=== PATIENT | male | born 1935 | race Caucasian/White ===

== ENCOUNTER 2016-04-28 15:13 | Inpatient (IN) | payer MEDICARE, OTHER ==
[~2016-04-28] VITALS: Ht 182.9 cm; Wt 128.4 kg
[~2016-04-28 15:13] MED LIST: ACET500T76 PO; ALBU1.25 NEB; AMLO2.5T PO; APIX5TAB PO; ASCO-96 PO; ASPI-650 PO; ATOR20TA PO; CARV12.52 PO; CARV12.543 PO; CLOP75TA PO; DOCU-30 PO; FURO20TA3 PO; GABA300C10 PO; GABA600T2 PO; GLIP5TAB10 PO; INSU100I32 SQ; INSU100V5 SQ-INSULIN; LINA5TAB PO; MULT-516 PO; NIAC500C3 PO; PANT40TA3 PO; POLY17PO5 PO; PRED10TA PO; TAMS0.4C2 PO; VALS160T3 PO
[2016-04-28] MEDS ORDERED: SODIUM CHLORIDE 0.9% 1,000ML IVBOLUS ONE (16:30)
[2016-04-28 16:32] LABS: HEMOGLOBIN 12.2 g/dL (13.7-18.0)
[2016-04-28] MEDS ORDERED: SODIUM CHLORIDE 0.9% 1,000 ML IV ONE (16:36)
[2016-04-28] MEDS ORDERED: ASPI-650 PO (16:41)
[2016-04-28 16:45] LABS: ASPARTATE AMINO TRANSFERASE 14 U/L (15-37); BLOOD UREA NITROGEN 37 mg/dL (7-18)
[2016-04-28] MEDS ORDERED: CEFTRIAXONE PMX 1GM/50ML 50 ML IVPB ONE (17:00)
[2016-04-28] MEDS ORDERED: CEFTRIAXONE PMX 1GM/50ML 50 ML ONE (17:19)
[2016-04-28] MEDS ORDERED: SODIUM CHLORIDE FLUSH 10ML SYR IVF PRN (20:00)
[2016-04-28] MEDS ORDERED: POLYETHYLENE GLYCOL 17 GM PACKET PO PRN (20:30)
[2016-04-28] MEDS ORDERED: BISACODYL 10 MG SUPP PR PRN (20:30)
[2016-04-28] MEDS ORDERED: VANCOMYCIN PER PHARMACY MC PRN (20:30)
[2016-04-28] MEDS ORDERED: OXYcodone IR 5MG TABLET PO PRN (20:30)
[2016-04-28] MEDS ORDERED: PIPERACILLIN/TAZO/PMX 3.375GM 50 ML ONE (20:36)
[2016-04-28] MEDS: PIPERACILLIN/TAZO/PMX 3.375GM 50 ML IV SCH (20:41)
[2016-04-28 21:30] VITALS: BP 164/91
[2016-04-28] MEDS ORDERED: PHARMACOKINETIC MONITORING MC PRN ×2 (22:00)
[2016-04-28] MEDS ORDERED: VANCOMYCIN 2,200 MG in SODIUM CHLORIDE 0.9% 500 ML IV SCH (23:00)
[2016-04-28] MEDS ORDERED: INSULIN ASPART 100 UNITS/ML, PEN SQ-INSULIN SCH (23:30)
[2016-04-28] MEDS: TAMSULOSIN 0.4 MG CAP.ER.24H PO SCH (23:37)
[2016-04-28] MEDS: GABAPENTIN 300 MG CAPSULE PO SCH (23:37)
[2016-04-28] MEDS: SODIUM CHLORIDE 0.9% 1,000 ML IV SCH (23:37)
[2016-04-28] MEDS: ATORVASTATIN 20 MG TABLET PO SCH (23:37)
[2016-04-28] MEDS: SODIUM CHLORIDE FLUSH 10ML SYR IVF SCH (23:38)
[2016-04-29 02:19] VITALS: BP 108/67
[2016-04-29] MEDS: PIPERACILLIN/TAZO/PMX 3.375GM 50 ML IV SCH ×4 (03:02→19:57)
[2016-04-29 05:04] LABS: HEMOGLOBIN 11.2 g/dL (13.7-18.0)
[2016-04-29 05:17] LABS: BLOOD UREA NITROGEN 30 mg/dL (7-18)
[2016-04-29 05:22] LABS: ASPARTATE AMINO TRANSFERASE 14 U/L (15-37)
[2016-04-29] MEDS: INSULIN ASPART 100 UNITS/ML, PEN SQ-INSULIN SCH ×4 (05:50→20:02)
[2016-04-29 06:50] VITALS: BP 153/84
[2016-04-29] MEDS ORDERED: GADOBUTROL 10 MMOL/10 ML PFS ONE (07:43)
[2016-04-29] MEDS ORDERED: INSULIN DEGLUDEC SQ SCH ×2 (09:00→21:00)
[2016-04-29] MEDS: SODIUM CHLORIDE FLUSH 10ML SYR IVF SCH ×2 (09:06→19:57)
[2016-04-29] MEDS: TAMSULOSIN 0.4 MG CAP.ER.24H PO SCH ×2 (09:06→19:57)
[2016-04-29] MEDS: NIACIN 500 MG TABLET.ER PO SCH (09:07)
[2016-04-29] MEDS: FUROSEMIDE 20 MG TABLET PO SCH (09:07)
[2016-04-29] MEDS: GABAPENTIN 300 MG CAPSULE PO SCH ×2 (09:07→19:57)
[2016-04-29] MEDS: ASPIRIN 325 MG TABLET EC PO SCH (09:07)
[2016-04-29] MEDS: MULTIVITAMIN 1 TABLET PO SCH (09:08)
[2016-04-29] MEDS: ASCORBIC ACID 500 MG TABLET PO SCH (09:09)
[2016-04-29] MEDS: SENNA/DOCUSATE TABLET PO SCH (09:09)
[2016-04-29] MEDS ORDERED: HEPARIN 5,000 UNITS/ML, 1ML IV ONE (10:30)
[2016-04-29] MEDS ORDERED: HEPARIN 5,000 UNITS/ML, 1ML IV PRN (10:30)
[2016-04-29] MEDS ORDERED: HEPARIN 25,000 UNITS/500ML PMX 500 ML IV PRN (10:30)
[2016-04-29 13:43] VITALS: BP 145/79
[2016-04-29] MEDS ORDERED: VANCOMYCIN 1,800 MG in SODIUM CHLORIDE 0.9% 250 ML IV SCH (17:00)
[2016-04-29 18:30] VITALS: BP 137/74
[2016-04-29] MEDS: ATORVASTATIN 20 MG TABLET PO SCH (19:57)
[2016-04-29] MEDS: SODIUM CHLORIDE 0.9% 1,000 ML IV SCH (19:57)
[2016-04-30 01:41] VITALS: BP 148/78
[2016-04-30] MEDS: PIPERACILLIN/TAZO/PMX 3.375GM 50 ML IV SCH ×4 (02:40→23:26)
[2016-04-30 05:01] LABS: HEMOGLOBIN 11.3 g/dL (13.7-18.0)
[2016-04-30 05:14] LABS: BLOOD UREA NITROGEN 26 mg/dL (7-18)
[2016-04-30] MEDS: INSULIN ASPART 100 UNITS/ML, PEN SQ-INSULIN SCH ×4 (07:00→23:26)
[2016-04-30 07:11] VITALS: BP 121/63
[2016-04-30] MEDS: ASCORBIC ACID 500 MG TABLET PO SCH (09:00)
[2016-04-30] MEDS: ASPIRIN 325 MG TABLET EC PO SCH (09:00)
[2016-04-30] MEDS: SENNA/DOCUSATE TABLET PO SCH (09:00)
[2016-04-30] MEDS: NIACIN 500 MG TABLET.ER PO SCH (09:00)
[2016-04-30] MEDS: FUROSEMIDE 20 MG TABLET PO SCH (09:00)
[2016-04-30] MEDS: GABAPENTIN 300 MG CAPSULE PO SCH ×2 (09:00→23:25)
[2016-04-30] MEDS: TAMSULOSIN 0.4 MG CAP.ER.24H PO SCH ×2 (09:00→23:25)
[2016-04-30] MEDS: MULTIVITAMIN 1 TABLET PO SCH (09:00)
[2016-04-30] MEDS: SODIUM CHLORIDE FLUSH 10ML SYR IVF SCH ×2 (09:55→23:25)
[2016-04-30] MEDS: SODIUM CHLORIDE 0.9% 1,000 ML IV SCH (10:20)
[2016-04-30] MEDS ORDERED: FENTANYL PF 250 MCG/5ML ONE (13:14)
[2016-04-30] MEDS ORDERED: MIDAZOLAM 1 MG/ML, 2ML ONE (13:14)
[2016-04-30] MEDS ORDERED: LIDOCAINE/PF 1%, 30ML ONE (13:24)
[2016-04-30] MEDS ORDERED: ROCURONIUM 10 MG/ML ONE (13:27)
[2016-04-30] MEDS ORDERED: EPHEDRINE 50 MG/ML, 1ML ONE (13:27)
[2016-04-30] MEDS ORDERED: PROPOFOL 10 MG/ML, 20ML ONE (13:27)
[2016-04-30] MEDS ORDERED: PHENYLEPHRINE 10 MG/ML ONE (13:27)
[2016-04-30] MEDS ORDERED: DEXAMETHASONE 4 MG/ML, 1ML ONE (13:27)
[2016-04-30] MEDS ORDERED: NEOSTIGMINE 1 MG/ML, 10ML ONE (13:27)
[2016-04-30] MEDS ORDERED: ONDANSETRON 2MG/ML, 2ML ONE (13:27)
[2016-04-30] MEDS ORDERED: CEFAZOLIN 1,000 MG ONE (13:27)
[2016-04-30] MEDS ORDERED: GLYCOPYRROLATE 0.2MG/1ML ONE (13:27)
[2016-04-30] MEDS ORDERED: ACETAMINOPHEN 325 MG TABLET PO PRN (14:00)
[2016-04-30] MEDS ORDERED: hydrALAzine 20 MG/ML, 1ML IV PRN (14:00)
[2016-04-30] MEDS ORDERED: HYDROmorphone 1 MG/ML, 1ML IV PRN (14:00)
[2016-04-30] MEDS ORDERED: MEPERIDINE/PF 25MG/0.5ML IVPush PRN (14:00)
[2016-04-30] MEDS ORDERED: PROMETHAZINE 25 MG/ML, 1ML IV PRN (14:00)
[2016-04-30] MEDS ORDERED: OXYcodone 5 MG/5 ML ORAL.SOL UDC PO PRN (14:00)
[2016-04-30] MEDS ORDERED: ONDANSETRON 2MG/ML, 2ML IVPush PRN (14:00)
[2016-04-30] MEDS ORDERED: FENTANYL PF 100 MCG/2ML IV PRN (14:00)
[2016-04-30] MEDS ORDERED: MIDAZOLAM 1 MG/ML, 2ML IV PRN (14:00)
[2016-04-30] MEDS ORDERED: LABETALOL 5MG/ML, 20ML IV PRN (14:00)
[2016-04-30] MEDS ORDERED: ACETAMINOPHEN 650 MG/20.3 ML UDC ONE (14:38)
[2016-04-30] MEDS ORDERED: OXYcodone 5 MG/5 ML ORAL.SOL UDC ONE (14:38)
[2016-04-30 15:15] VITALS: BP 101/49
[2016-04-30] MEDS ORDERED: VANCOMYCIN 1,800 MG in SODIUM CHLORIDE 0.9% 250 ML IV SCH (17:00)
[2016-04-30 19:59] VITALS: BP 115/52
[2016-04-30] MEDS: ATORVASTATIN 20 MG TABLET PO SCH (23:25)
[2016-04-30] MEDS: INSULIN DEGLUDEC SQ SCH (23:28)
[2016-05-01 01:12] VITALS: BP 138/64
[2016-05-01 05:49] LABS: HEMOGLOBIN 11.1 g/dL (13.7-18.0)
[2016-05-01 05:56] LABS: BLOOD UREA NITROGEN 25 mg/dL (7-18)
[2016-05-01] MEDS: PIPERACILLIN/TAZO/PMX 3.375GM 50 ML IV SCH (06:42)
[2016-05-01] MEDS ORDERED: SODIUM CHLORIDE 0.9%, 500ML IVBOLUS ONE (07:00)
[2016-05-01 07:40] VITALS: BP 139/73
[2016-05-01] MEDS: SODIUM CHLORIDE 0.9% 1,000 ML IV SCH ×2 (07:51→14:03)
[2016-05-01] MEDS: INSULIN ASPART 100 UNITS/ML, PEN SQ-INSULIN SCH ×4 (08:03→20:47)
[2016-05-01] MEDS: ONDANSETRON 2MG/ML, 2ML IVP PRN ×3 (08:10→19:06)
[2016-05-01] MEDS: SENNA/DOCUSATE TABLET PO SCH (09:00)
[2016-05-01] MEDS: MULTIVITAMIN 1 TABLET PO SCH (09:00)
[2016-05-01] MEDS: ASPIRIN 325 MG TABLET EC PO SCH (09:00)
[2016-05-01] MEDS: TAMSULOSIN 0.4 MG CAP.ER.24H PO SCH ×2 (09:00→20:48)
[2016-05-01] MEDS: ASCORBIC ACID 500 MG TABLET PO SCH (09:00)
[2016-05-01] MEDS: NIACIN 500 MG TABLET.ER PO SCH (09:00)
[2016-05-01] MEDS: AMPICILLIN/SULBACTAM 3 GM in SODIUM CHLORIDE 0.9% 100 ML IV SCH ×3 (11:56→20:47)
[2016-05-01] MEDS: SODIUM CHLORIDE FLUSH 10ML SYR IVF SCH ×2 (11:56→20:49)
[2016-05-01] MEDS: FUROSEMIDE 20 MG TABLET PO SCH (12:02)
[2016-05-01] MEDS: GABAPENTIN 300 MG CAPSULE PO SCH ×2 (12:02→20:48)
[2016-05-01 13:52] VITALS: BP 113/79
[2016-05-01] MEDS ORDERED: PROMETHAZINE 25 MG/ML, 1ML IM PRN (19:30)
[2016-05-01 19:44] VITALS: BP 110/68
[2016-05-01] MEDS: ATORVASTATIN 20 MG TABLET PO SCH (20:48)
[2016-05-01] MEDS: APIXABAN 5 MG TABLET PO SCH (20:48)
[2016-05-01] MEDS: INSULIN DEGLUDEC SQ SCH (20:50)
[2016-05-01] MEDS ORDERED: APIXABAN 2.5 MG TABLET PO SCH (21:00)
[2016-05-01] MEDS: ACETAMINOPHEN 325 MG TABLET PO PRN (21:41)
[2016-05-02 01:48] VITALS: BP 125/69
[2016-05-02] MEDS: AMPICILLIN/SULBACTAM 3 GM in SODIUM CHLORIDE 0.9% 100 ML IV SCH ×4 (03:56→20:43)
[2016-05-02 05:51] LABS: HEMOGLOBIN 11.2 g/dL (13.7-18.0)
[2016-05-02 06:06] LABS: BLOOD UREA NITROGEN 28 mg/dL (7-18)
[2016-05-02] MEDS: INSULIN ASPART 100 UNITS/ML, PEN SQ-INSULIN SCH ×4 (07:00→20:44)
[2016-05-02 07:33] VITALS: BP 113/66
[2016-05-02] MEDS: APIXABAN 5 MG TABLET PO SCH ×4 (08:05→20:46)
[2016-05-02] MEDS: TAMSULOSIN 0.4 MG CAP.ER.24H PO SCH ×2 (08:05→20:46)
[2016-05-02] MEDS: ASCORBIC ACID 500 MG TABLET PO SCH (08:07)
[2016-05-02] MEDS: GABAPENTIN 300 MG CAPSULE PO SCH ×2 (08:07→20:46)
[2016-05-02] MEDS: ASPIRIN 325 MG TABLET EC PO SCH (08:07)
[2016-05-02] MEDS: MULTIVITAMIN 1 TABLET PO SCH (08:07)
[2016-05-02] MEDS: FUROSEMIDE 20 MG TABLET PO SCH (08:08)
[2016-05-02] MEDS: NIACIN 500 MG TABLET.ER PO SCH (08:45)
[2016-05-02] MEDS: SODIUM CHLORIDE FLUSH 10ML SYR IVF SCH ×2 (08:46→20:46)
[2016-05-02] MEDS ORDERED: VANCOMYCIN 1,800 MG in SODIUM CHLORIDE 0.9% 250 ML IV SCH (11:30)
[2016-05-02] MEDS: SODIUM CHLORIDE 0.9% 1,000 ML IV SCH ×2 (12:19→20:42)
[2016-05-02] MEDS: SENNA/DOCUSATE TABLET PO SCH (12:19)
[2016-05-02 14:00] VITALS: BP 120/74
[2016-05-02 18:47] VITALS: BP 125/69
[2016-05-02] MEDS: INSULIN DEGLUDEC SQ SCH (20:44)
[2016-05-02] MEDS: ATORVASTATIN 20 MG TABLET PO SCH (20:46)
[2016-05-03 01:35] VITALS: BP 115/75
[2016-05-03] MEDS: AMPICILLIN/SULBACTAM 3 GM in SODIUM CHLORIDE 0.9% 100 ML IV SCH ×2 (03:34→08:52)
[2016-05-03 05:11] LABS: HEMOGLOBIN 11.1 g/dL (13.7-18.0)
[2016-05-03 05:23] LABS: BLOOD UREA NITROGEN 30 mg/dL (7-18)
[2016-05-03] MEDS: INSULIN ASPART 100 UNITS/ML, PEN SQ-INSULIN SCH (07:00)
[2016-05-03 08:27] VITALS: BP 129/74
[2016-05-03] MEDS ORDERED: CEPH-368 PO (08:52)
[2016-05-03] MEDS ORDERED: DOXY100C15 PO (08:52)
[2016-05-03] MEDS ORDERED: TRAM50TA2 PO (08:52)
[2016-05-03] MEDS: FUROSEMIDE 20 MG TABLET PO SCH (08:54)
[2016-05-03] MEDS: TAMSULOSIN 0.4 MG CAP.ER.24H PO SCH (08:54)
[2016-05-03] MEDS: MULTIVITAMIN 1 TABLET PO SCH (08:54)
[2016-05-03] MEDS: NIACIN 500 MG TABLET.ER PO SCH (08:54)
[2016-05-03] MEDS: SENNA/DOCUSATE TABLET PO SCH (08:54)
[2016-05-03] MEDS: ASPIRIN 325 MG TABLET EC PO SCH (08:55)
[2016-05-03] MEDS: ASCORBIC ACID 500 MG TABLET PO SCH (08:55)
[2016-05-03] MEDS: GABAPENTIN 300 MG CAPSULE PO SCH (08:55)
[2016-05-03] MEDS: APIXABAN 5 MG TABLET PO SCH (08:55)
[2016-05-03] MEDS: SODIUM CHLORIDE FLUSH 10ML SYR IVF SCH (08:57)
[2016-05-03] MEDS: ACETAMINOPHEN 325 MG TABLET PO PRN (10:27)
== END 2016-05-03 14:36 | disposition home or self-care (01) | DRG 617 ==
LOC: ED 16:48 → 3NE 19:42
PROVIDERS: ADMIT Internal Medicine; ATTEND Internal Medicine
PROC: 0Y6T0Z0 Detachment at Right 3rd Toe, Complete, Open Approach (ICD-10-PCS; principal; 2016-04-30 13:00)
DX: E11.621 Type 2 diabetes mellitus with foot ulcer (principal); M86.171 Other acute osteomyelitis, right ankle and foot; E44.1 Mild protein-calorie malnutrition; D68.69 Other thrombophilia; I69.351 Hemiplegia and hemiparesis following cerebral infarction affecting right dominant side; L03.115 Cellulitis of right lower limb; E11.69 Type 2 diabetes mellitus with other specified complication; E11.319 Type 2 diabetes mellitus with unspecified diabetic retinopathy without macular edema; E11.40 Type 2 diabetes mellitus with diabetic neuropathy, unspecified; E78.5 Hyperlipidemia, unspecified; D64.9 Anemia, unspecified; I25.10 Atherosclerotic heart disease of native coronary artery without angina pectoris; M54.9 Dorsalgia, unspecified; G89.29 Other chronic pain; I48.91 Unspecified atrial fibrillation; J44.9 Chronic obstructive pulmonary disease, unspecified; E66.01 Morbid (severe) obesity due to excess calories; Z87.442 Personal history of urinary calculi; Z68.38 Body mass index [BMI] 38.0-38.9, adult; Z90.49 Acquired absence of other specified parts of digestive tract; Z79.01 Long term (current) use of anticoagulants; Z79.4 Long term (current) use of insulin; Z87.891 Personal history of nicotine dependence; Z82.49 Family history of ischemic heart disease and other diseases of the circulatory system; L97.519 Non-pressure chronic ulcer of other part of right foot with unspecified severity
CPT/HCPCS: 36415; 74000; 80048; 80053; 80202; 82962; 83036; 83605; 84145; 85025; 85520; 85610; 85651; 85730; 86141; 87040; 87070; 87075; 87176; 87205; 88305; 88311; 93005; 96361; 96365; 96367; A9585; J0295; J0690; J0696; J1100; J1644; J1815; J2250; J2405; J2543; J2704; J2710; J3010; J3370; J3490; J2370; J7030; J7040; J7050

== ENCOUNTER → 2016-05-12 | Outpatient (CLI) | payer MEDICARE, OTHER ==
[~2016-05-12] MED LIST changes: +CEPH-368 PO; +DOXY100C15 PO; +TRAM50TA2 PO
== END | disposition home or self-care (01) ==
LOC: WOUND 09:59
PROVIDERS: ATTEND Physician Assistant
DX: T81.31XD Disruption of external operation (surgical) wound, not elsewhere classified, subsequent encounter (principal); E11.621 Type 2 diabetes mellitus with foot ulcer; L97.511 Non-pressure chronic ulcer of other part of right foot limited to breakdown of skin; E11.40 Type 2 diabetes mellitus with diabetic neuropathy, unspecified; E66.9 Obesity, unspecified; E78.5 Hyperlipidemia, unspecified; I48.91 Unspecified atrial fibrillation; I25.10 Atherosclerotic heart disease of native coronary artery without angina pectoris; Z79.01 Long term (current) use of anticoagulants; Z86.73 Personal history of transient ischemic attack (TIA), and cerebral infarction without residual deficits; Z87.891 Personal history of nicotine dependence; Z72.89 Other problems related to lifestyle; Y83.8 Other surgical procedures as the cause of abnormal reaction of the patient, or of later complication, without mention of misadventure at the time of the procedure
CPT/HCPCS: 97597

== ENCOUNTER → 2016-05-19 | Outpatient (CLI) | payer MEDICARE, OTHER | END | disposition home or self-care (01) | LOC: WOUND 09:48 | PROVIDERS: ATTEND Internal Medicine | DX: T87.81 Dehiscence of amputation stump (principal); E11.621 Type 2 diabetes mellitus with foot ulcer; L97.511 Non-pressure chronic ulcer of other part of right foot limited to breakdown of skin; E11.69 Type 2 diabetes mellitus with other specified complication; M86.171 Other acute osteomyelitis, right ankle and foot; E11.319 Type 2 diabetes mellitus with unspecified diabetic retinopathy without macular edema; E11.40 Type 2 diabetes mellitus with diabetic neuropathy, unspecified; E78.5 Hyperlipidemia, unspecified; I48.91 Unspecified atrial fibrillation; I25.10 Atherosclerotic heart disease of native coronary artery without angina pectoris; J44.9 Chronic obstructive pulmonary disease, unspecified; Z79.01 Long term (current) use of anticoagulants; Z86.73 Personal history of transient ischemic attack (TIA), and cerebral infarction without residual deficits; Z87.891 Personal history of nicotine dependence; Z72.89 Other problems related to lifestyle; E66.01 Morbid (severe) obesity due to excess calories; Z68.38 Body mass index [BMI] 38.0-38.9, adult; Z79.4 Long term (current) use of insulin; Y83.5 Amputation of limb(s) as the cause of abnormal reaction of the patient, or of later complication, without mention of misadventure at the time of the procedure | CPT/HCPCS: 97597 ==

== ENCOUNTER → 2016-05-26 | Outpatient (CLI) | payer MEDICARE, OTHER | END | disposition home or self-care (01) | LOC: WOUND 10:59 | PROVIDERS: ATTEND Physician Assistant | DX: T81.31XD Disruption of external operation (surgical) wound, not elsewhere classified, subsequent encounter (principal); E11.621 Type 2 diabetes mellitus with foot ulcer; L97.511 Non-pressure chronic ulcer of other part of right foot limited to breakdown of skin; Z79.01 Long term (current) use of anticoagulants; Z86.73 Personal history of transient ischemic attack (TIA), and cerebral infarction without residual deficits; J44.9 Chronic obstructive pulmonary disease, unspecified; E11.40 Type 2 diabetes mellitus with diabetic neuropathy, unspecified; E11.69 Type 2 diabetes mellitus with other specified complication; M86.171 Other acute osteomyelitis, right ankle and foot; E78.5 Hyperlipidemia, unspecified; I48.91 Unspecified atrial fibrillation; I25.10 Atherosclerotic heart disease of native coronary artery without angina pectoris; E44.1 Mild protein-calorie malnutrition; Z79.4 Long term (current) use of insulin; E66.01 Morbid (severe) obesity due to excess calories; Z87.891 Personal history of nicotine dependence; Z72.89 Other problems related to lifestyle; Y83.8 Other surgical procedures as the cause of abnormal reaction of the patient, or of later complication, without mention of misadventure at the time of the procedure | CPT/HCPCS: 97597 ==

== ENCOUNTER → 2016-06-02 | Outpatient (CLI) | payer MEDICARE, OTHER | END | disposition home or self-care (01) | LOC: WOUND 09:30 | PROVIDERS: ATTEND Physician Assistant | DX: T81.31XD Disruption of external operation (surgical) wound, not elsewhere classified, subsequent encounter (principal); E11.69 Type 2 diabetes mellitus with other specified complication; M86.171 Other acute osteomyelitis, right ankle and foot; E11.319 Type 2 diabetes mellitus with unspecified diabetic retinopathy without macular edema; Z79.01 Long term (current) use of anticoagulants; Z68.38 Body mass index [BMI] 38.0-38.9, adult; Z86.73 Personal history of transient ischemic attack (TIA), and cerebral infarction without residual deficits; J44.9 Chronic obstructive pulmonary disease, unspecified; E11.40 Type 2 diabetes mellitus with diabetic neuropathy, unspecified; E66.9 Obesity, unspecified; E78.5 Hyperlipidemia, unspecified; E44.1 Mild protein-calorie malnutrition; I48.91 Unspecified atrial fibrillation; I25.10 Atherosclerotic heart disease of native coronary artery without angina pectoris; Z87.891 Personal history of nicotine dependence; Z72.89 Other problems related to lifestyle; Z79.4 Long term (current) use of insulin; Y83.8 Other surgical procedures as the cause of abnormal reaction of the patient, or of later complication, without mention of misadventure at the time of the procedure | CPT/HCPCS: 97597 ==

== ENCOUNTER → 2016-06-09 | Outpatient (CLI) | payer MEDICARE, OTHER | END | disposition home or self-care (01) | LOC: WOUND 10:23 | PROVIDERS: ATTEND Physician Assistant | DX: T81.31XD Disruption of external operation (surgical) wound, not elsewhere classified, subsequent encounter (principal); E11.621 Type 2 diabetes mellitus with foot ulcer; L97.511 Non-pressure chronic ulcer of other part of right foot limited to breakdown of skin; J44.9 Chronic obstructive pulmonary disease, unspecified; E11.40 Type 2 diabetes mellitus with diabetic neuropathy, unspecified; E66.9 Obesity, unspecified; Z68.37 Body mass index [BMI] 37.0-37.9, adult; Z87.891 Personal history of nicotine dependence; Z86.73 Personal history of transient ischemic attack (TIA), and cerebral infarction without residual deficits; Z72.89 Other problems related to lifestyle; Z79.01 Long term (current) use of anticoagulants; Z89.421 Acquired absence of other right toe(s); Y83.8 Other surgical procedures as the cause of abnormal reaction of the patient, or of later complication, without mention of misadventure at the time of the procedure | CPT/HCPCS: 97597 ==

== ENCOUNTER → 2016-06-16 | Outpatient (CLI) | payer MEDICARE, OTHER | END | disposition home or self-care (01) | LOC: WOUND 10:30 | PROVIDERS: ATTEND Physician Assistant | DX: T81.31XD Disruption of external operation (surgical) wound, not elsewhere classified, subsequent encounter (principal); E11.621 Type 2 diabetes mellitus with foot ulcer; L97.511 Non-pressure chronic ulcer of other part of right foot limited to breakdown of skin; Z79.01 Long term (current) use of anticoagulants; Z86.73 Personal history of transient ischemic attack (TIA), and cerebral infarction without residual deficits; J44.9 Chronic obstructive pulmonary disease, unspecified; E11.40 Type 2 diabetes mellitus with diabetic neuropathy, unspecified; E66.9 Obesity, unspecified; Z68.38 Body mass index [BMI] 38.0-38.9, adult; E78.5 Hyperlipidemia, unspecified; E11.69 Type 2 diabetes mellitus with other specified complication; M86.171 Other acute osteomyelitis, right ankle and foot; I48.91 Unspecified atrial fibrillation; I25.10 Atherosclerotic heart disease of native coronary artery without angina pectoris; Z89.421 Acquired absence of other right toe(s); Z79.4 Long term (current) use of insulin; Z87.891 Personal history of nicotine dependence; Z72.89 Other problems related to lifestyle; Y83.8 Other surgical procedures as the cause of abnormal reaction of the patient, or of later complication, without mention of misadventure at the time of the procedure | CPT/HCPCS: 97597 ==

== ENCOUNTER → 2016-06-23 | Outpatient (CLI) | payer MEDICARE, OTHER | END | disposition home or self-care (01) | LOC: WOUND 10:30 | PROVIDERS: ATTEND Physician Assistant | DX: T81.31XD Disruption of external operation (surgical) wound, not elsewhere classified, subsequent encounter (principal); E11.621 Type 2 diabetes mellitus with foot ulcer; L97.511 Non-pressure chronic ulcer of other part of right foot limited to breakdown of skin; J44.9 Chronic obstructive pulmonary disease, unspecified; E11.40 Type 2 diabetes mellitus with diabetic neuropathy, unspecified; E78.5 Hyperlipidemia, unspecified; I48.91 Unspecified atrial fibrillation; I25.10 Atherosclerotic heart disease of native coronary artery without angina pectoris; E11.69 Type 2 diabetes mellitus with other specified complication; M86.171 Other acute osteomyelitis, right ankle and foot; E11.319 Type 2 diabetes mellitus with unspecified diabetic retinopathy without macular edema; E44.1 Mild protein-calorie malnutrition; E66.01 Morbid (severe) obesity due to excess calories; Z68.38 Body mass index [BMI] 38.0-38.9, adult; Z79.01 Long term (current) use of anticoagulants; Z89.421 Acquired absence of other right toe(s); Z86.73 Personal history of transient ischemic attack (TIA), and cerebral infarction without residual deficits; Z87.891 Personal history of nicotine dependence; Z72.89 Other problems related to lifestyle; Y83.8 Other surgical procedures as the cause of abnormal reaction of the patient, or of later complication, without mention of misadventure at the time of the procedure | CPT/HCPCS: 97597 ==

== ENCOUNTER → 2016-06-30 | Outpatient (CLI) | payer MEDICARE, OTHER | END | disposition home or self-care (01) | LOC: WOUND 10:30 | PROVIDERS: ATTEND Physician Assistant | DX: T87.89 Other complications of amputation stump (principal); E11.621 Type 2 diabetes mellitus with foot ulcer; L97.511 Non-pressure chronic ulcer of other part of right foot limited to breakdown of skin; J44.9 Chronic obstructive pulmonary disease, unspecified; E11.40 Type 2 diabetes mellitus with diabetic neuropathy, unspecified; E78.5 Hyperlipidemia, unspecified; E66.01 Morbid (severe) obesity due to excess calories; I48.91 Unspecified atrial fibrillation; E11.319 Type 2 diabetes mellitus with unspecified diabetic retinopathy without macular edema; M86.8X7 Other osteomyelitis, ankle and foot; E11.69 Type 2 diabetes mellitus with other specified complication; I25.10 Atherosclerotic heart disease of native coronary artery without angina pectoris; Z68.37 Body mass index [BMI] 37.0-37.9, adult; Z86.73 Personal history of transient ischemic attack (TIA), and cerebral infarction without residual deficits; Z72.89 Other problems related to lifestyle; Z87.891 Personal history of nicotine dependence; Z79.01 Long term (current) use of anticoagulants; Z79.4 Long term (current) use of insulin; Y83.5 Amputation of limb(s) as the cause of abnormal reaction of the patient, or of later complication, without mention of misadventure at the time of the procedure | CPT/HCPCS: 11042 ==

== ENCOUNTER → 2016-07-07 | Outpatient (CLI) | payer MEDICARE, OTHER | END | disposition home or self-care (01) | LOC: WOUND 10:19 | PROVIDERS: ATTEND Physician Assistant | DX: T81.31XD Disruption of external operation (surgical) wound, not elsewhere classified, subsequent encounter (principal); E11.621 Type 2 diabetes mellitus with foot ulcer; L97.511 Non-pressure chronic ulcer of other part of right foot limited to breakdown of skin; Z86.73 Personal history of transient ischemic attack (TIA), and cerebral infarction without residual deficits; J44.9 Chronic obstructive pulmonary disease, unspecified; E11.40 Type 2 diabetes mellitus with diabetic neuropathy, unspecified; Z79.4 Long term (current) use of insulin; E78.5 Hyperlipidemia, unspecified; I48.91 Unspecified atrial fibrillation; I25.10 Atherosclerotic heart disease of native coronary artery without angina pectoris; E66.01 Morbid (severe) obesity due to excess calories; E11.69 Type 2 diabetes mellitus with other specified complication; M86.171 Other acute osteomyelitis, right ankle and foot; Z68.37 Body mass index [BMI] 37.0-37.9, adult; Z87.891 Personal history of nicotine dependence; Z72.89 Other problems related to lifestyle; Z89.421 Acquired absence of other right toe(s); Y83.8 Other surgical procedures as the cause of abnormal reaction of the patient, or of later complication, without mention of misadventure at the time of the procedure | CPT/HCPCS: 97597 ==

== ENCOUNTER → 2016-07-15 | Outpatient (CLI) | payer MEDICARE, OTHER | END | disposition home or self-care (01) | LOC: WOUND 10:32 | PROVIDERS: ATTEND Internal Medicine | DX: T87.81 Dehiscence of amputation stump (principal); E11.621 Type 2 diabetes mellitus with foot ulcer; L97.511 Non-pressure chronic ulcer of other part of right foot limited to breakdown of skin; E11.36 Type 2 diabetes mellitus with diabetic cataract; J44.9 Chronic obstructive pulmonary disease, unspecified; E11.40 Type 2 diabetes mellitus with diabetic neuropathy, unspecified; E66.9 Obesity, unspecified; E78.5 Hyperlipidemia, unspecified; I48.91 Unspecified atrial fibrillation; I25.10 Atherosclerotic heart disease of native coronary artery without angina pectoris; Z87.891 Personal history of nicotine dependence; Z72.89 Other problems related to lifestyle; Z86.73 Personal history of transient ischemic attack (TIA), and cerebral infarction without residual deficits; Y83.5 Amputation of limb(s) as the cause of abnormal reaction of the patient, or of later complication, without mention of misadventure at the time of the procedure | CPT/HCPCS: 97597 ==

== ENCOUNTER → 2016-07-17 | Outpatient (CLI) | payer MEDICARE, OTHER ==
[2016-07-17 16:03] LABS: ASPARTATE AMINO TRANSFERASE 23 U/L (15-37); BLOOD UREA NITROGEN 37 mg/dL (7-18)
== END | disposition home or self-care (01) ==
LOC: CFH 14:45
PROVIDERS: ATTEND Nurse Practitioner Primary Care
DX: I11.0 Hypertensive heart disease with heart failure (principal); I50.9 Heart failure, unspecified; I51.7 Cardiomegaly; J90 Pleural effusion, not elsewhere classified; E11.65 Type 2 diabetes mellitus with hyperglycemia; R53.83 Other fatigue; G89.29 Other chronic pain; N28.9 Disorder of kidney and ureter, unspecified; E78.2 Mixed hyperlipidemia; Z95.2 Presence of prosthetic heart valve; Z86.79 Personal history of other diseases of the circulatory system
CPT/HCPCS: 36415; 71020; 80053; 83880; 85025

== ENCOUNTER → 2016-07-21 | Outpatient (CLI) | payer MEDICARE, OTHER | END | disposition home or self-care (01) | LOC: WOUND 10:30 | PROVIDERS: ATTEND Physician Assistant | DX: T81.31XD Disruption of external operation (surgical) wound, not elsewhere classified, subsequent encounter (principal); E11.621 Type 2 diabetes mellitus with foot ulcer; L97.511 Non-pressure chronic ulcer of other part of right foot limited to breakdown of skin; Z79.01 Long term (current) use of anticoagulants; Z86.73 Personal history of transient ischemic attack (TIA), and cerebral infarction without residual deficits; J44.9 Chronic obstructive pulmonary disease, unspecified; E11.40 Type 2 diabetes mellitus with diabetic neuropathy, unspecified; E66.9 Obesity, unspecified; Z68.37 Body mass index [BMI] 37.0-37.9, adult; I25.10 Atherosclerotic heart disease of native coronary artery without angina pectoris; E78.5 Hyperlipidemia, unspecified; Z87.891 Personal history of nicotine dependence; Z72.89 Other problems related to lifestyle; Y83.8 Other surgical procedures as the cause of abnormal reaction of the patient, or of later complication, without mention of misadventure at the time of the procedure | CPT/HCPCS: 11042 ==

== ENCOUNTER → 2016-07-28 | Outpatient (CLI) | payer MEDICARE, OTHER | END | disposition home or self-care (01) | LOC: WOUND 11:04 | PROVIDERS: ATTEND Physician Assistant | DX: T81.31XD Disruption of external operation (surgical) wound, not elsewhere classified, subsequent encounter (principal); J44.9 Chronic obstructive pulmonary disease, unspecified; E66.01 Morbid (severe) obesity due to excess calories; Z68.37 Body mass index [BMI] 37.0-37.9, adult; E11.40 Type 2 diabetes mellitus with diabetic neuropathy, unspecified; E11.65 Type 2 diabetes mellitus with hyperglycemia; E11.36 Type 2 diabetes mellitus with diabetic cataract; E11.319 Type 2 diabetes mellitus with unspecified diabetic retinopathy without macular edema; I48.91 Unspecified atrial fibrillation; E78.2 Mixed hyperlipidemia; E11.69 Type 2 diabetes mellitus with other specified complication; M86.171 Other acute osteomyelitis, right ankle and foot; Z86.73 Personal history of transient ischemic attack (TIA), and cerebral infarction without residual deficits; Z87.891 Personal history of nicotine dependence; Z72.89 Other problems related to lifestyle; Z79.01 Long term (current) use of anticoagulants; Z79.4 Long term (current) use of insulin; Z89.421 Acquired absence of other right toe(s); Y83.8 Other surgical procedures as the cause of abnormal reaction of the patient, or of later complication, without mention of misadventure at the time of the procedure | CPT/HCPCS: 11042 ==

== ENCOUNTER → 2016-08-05 | Outpatient (CLI) | payer MEDICARE, OTHER ==
[~2016-08-05] MED LIST changes: +ACET500T71 PO; -ACET500T76 PO
== END | disposition home or self-care (01) ==
LOC: WOUND 10:30
PROVIDERS: ATTEND Internal Medicine
DX: T81.31XD Disruption of external operation (surgical) wound, not elsewhere classified, subsequent encounter (principal); E11.621 Type 2 diabetes mellitus with foot ulcer; L97.511 Non-pressure chronic ulcer of other part of right foot limited to breakdown of skin; Z86.73 Personal history of transient ischemic attack (TIA), and cerebral infarction without residual deficits; J44.9 Chronic obstructive pulmonary disease, unspecified; E11.40 Type 2 diabetes mellitus with diabetic neuropathy, unspecified; E66.9 Obesity, unspecified; I48.91 Unspecified atrial fibrillation; I25.10 Atherosclerotic heart disease of native coronary artery without angina pectoris; E78.2 Mixed hyperlipidemia; E11.69 Type 2 diabetes mellitus with other specified complication; M86.171 Other acute osteomyelitis, right ankle and foot; E11.319 Type 2 diabetes mellitus with unspecified diabetic retinopathy without macular edema; E44.1 Mild protein-calorie malnutrition; Z68.37 Body mass index [BMI] 37.0-37.9, adult; Z89.421 Acquired absence of other right toe(s); Z87.891 Personal history of nicotine dependence; Z72.89 Other problems related to lifestyle; Y83.8 Other surgical procedures as the cause of abnormal reaction of the patient, or of later complication, without mention of misadventure at the time of the procedure
CPT/HCPCS: 97597

== ENCOUNTER 2016-08-09 09:35 | Inpatient (IN) | payer MEDICARE, OTHER ==
[~2016-08-09] VITALS: Ht 182.9 cm; Wt 121.6 kg
[2016-08-09] MEDS ORDERED: FURO20TA3 PO (10:05)
[2016-08-09] MEDS ORDERED: POTA20TA89 PO (10:05)
[2016-08-09] MEDS ORDERED: INSU100I32 SQ (10:05)
[2016-08-09] MEDS ORDERED: SODIUM CHLORIDE 0.9% 1,000ML IVBOLUS ONE (11:00)
[2016-08-09] MEDS ORDERED: CEFTRIAXONE PMX 1GM/50ML 50 ML IVPB ONE (11:00)
[2016-08-09] MEDS ORDERED: SODIUM CHLORIDE FLUSH 10ML SYR IVF ONE (11:00)
[2016-08-09 11:51] LABS: ASPARTATE AMINO TRANSFERASE 26 U/L (15-37); BLOOD UREA NITROGEN 39 mg/dL (7-18)
[2016-08-09] MEDS ORDERED: CEFTRIAXONE PMX 1GM/50ML 50 ML ONE (11:52)
[2016-08-09 12:00] LABS: IS PT STATUS REG ER OR PRE ER? YES
[2016-08-09] MEDS ORDERED: ASPIRIN 325 MG TABLET PO ONE (12:08)
[2016-08-09] MEDS ORDERED: FUROSEMIDE 40 MG/4 ML ONE (12:53)
[2016-08-09] MEDS ORDERED: ASPIRIN 325 MG TABLET ONE (12:53)
[2016-08-09] MEDS ORDERED: DEXTROSE 4 GM TAB.CHEW PO PRN (13:00)
[2016-08-09] MEDS ORDERED: GLUCAGON 1 MG IM PRN (13:00)
[2016-08-09] MEDS ORDERED: FUROSEMIDE 40 MG/4 ML IV ONE (13:00)
[2016-08-09] MEDS ORDERED: DEXTROSE 50%, 50ML SYRINGE IVPush PRN (13:00)
[2016-08-09] MEDS ORDERED: GUAIFENESIN ER 600 MG TABLET PO SCH (13:30)
[2016-08-09] MEDS ORDERED: ACETAMINOPHEN 325 MG TABLET PO PRN (13:30)
[2016-08-09] MEDS ORDERED: PHARMACY MAY ADJ FOR RENAL FX MC PRN (13:30)
[2016-08-09] MEDS ORDERED: BISACODYL 10 MG SUPP PR PRN (13:30)
[2016-08-09] MEDS ORDERED: DOCUSATE 100 MG CAPSULE PO PRN (13:30)
[2016-08-09 14:52] LABS: PATH.CAST-FLAG NOT PRESENT; SPERM-FLAG NOT PRESENT; SRC-FLAG NOT PRESENT; XTAL-FLAG NOT PRESENT; YLC-FLAG NOT PRESENT
[2016-08-09 15:25] VITALS: BP 86/56
[2016-08-09] MEDS: DOXYCYCLINE 100 MG in DEXTROSE 5% 250 ML IV SCH (15:56)
[2016-08-09] MEDS: INSULIN REGULAR 100 UNITS/ML, 3ML VIAL SQ-INSULIN SCH (15:57)
[2016-08-09 16:15] VITALS: BP 92/63
[2016-08-09] MEDS: methylPREDNISolone SOD SUCC 125 MG/2 ML IVPush SCH ×2 (16:27→21:28)
[2016-08-09 16:48] VITALS: BP 106/63
[2016-08-09 17:20] LABS: IS PT STATUS REG ER OR PRE ER? NO
[2016-08-09 17:34] VITALS: BP 115/64
[2016-08-09 19:00] VITALS: BP 112/89
[2016-08-09 21:00] VITALS: BP 106/59
[2016-08-09] MEDS: APIXABAN 5 MG TABLET PO SCH (21:00)
[2016-08-09] MEDS: GABAPENTIN 300 MG CAPSULE PO SCH (21:00)
[2016-08-09] MEDS: ATORVASTATIN 20 MG TABLET PO SCH (21:00)
[2016-08-09] MEDS: GUAIFENESIN ER 600 MG TABLET PO SCH (21:00)
[2016-08-09] MEDS: TAMSULOSIN 0.4 MG CAP.ER.24H PO SCH (21:00)
[2016-08-09] MEDS: SODIUM CHLORIDE FLUSH 10ML SYR IVF SCH (21:28)
[2016-08-09 21:42] LABS: ABG COLLECTION SITE RIGHT RADIAL; COLLATERAL CIRCULATION TESTING NORMAL
[2016-08-09 23:26] LABS: IS PT STATUS REG ER OR PRE ER? NO
[2016-08-10] MEDS: INSULIN REGULAR 100 UNITS/ML, 3ML VIAL SQ-INSULIN SCH ×5 (00:02→20:53)
[2016-08-10] MEDS: DOXYCYCLINE 100 MG in DEXTROSE 5% 250 ML IV SCH ×2 (01:38→13:37)
[2016-08-10 04:00] VITALS: BP 110/78
[2016-08-10 05:47] LABS: ASPARTATE AMINO TRANSFERASE 35 U/L (15-37); BLOOD UREA NITROGEN 53 mg/dL (7-18)
[2016-08-10 05:50] LABS: IS PT STATUS REG ER OR PRE ER? NO
[2016-08-10] MEDS: methylPREDNISolone SOD SUCC 125 MG/2 ML IVPush SCH ×3 (06:19→20:51)
[2016-08-10 08:20] VITALS: BP 107/70
[2016-08-10] MEDS ORDERED: ASPIRIN 325 MG TABLET EC PO SCH (09:00)
[2016-08-10] MEDS: PANTOPRAZOLE 40 MG IV IVPush SCH (09:00)
[2016-08-10] MEDS ORDERED: FUROSEMIDE 20 MG/2 ML IV SCH (09:00)
[2016-08-10] MEDS: GABAPENTIN 300 MG CAPSULE PO SCH ×2 (09:01→20:52)
[2016-08-10] MEDS: MULTIVITAMIN 1 TABLET PO SCH (09:01)
[2016-08-10] MEDS: TAMSULOSIN 0.4 MG CAP.ER.24H PO SCH ×2 (09:03→20:52)
[2016-08-10] MEDS: APIXABAN 5 MG TABLET PO SCH (09:03)
[2016-08-10] MEDS: GUAIFENESIN ER 600 MG TABLET PO SCH ×2 (09:03→20:52)
[2016-08-10] MEDS: ASPIRIN 81 MG TABLET EC PO SCH (09:03)
[2016-08-10] MEDS: SODIUM CHLORIDE FLUSH 10ML SYR IVF SCH ×2 (09:04→19:24)
[2016-08-10] MEDS: CEFTRIAXONE 2 GM in SODIUM CHLORIDE 0.9% 50 ML IVPB SCH (12:39)
[2016-08-10 15:43] VITALS: BP 108/68
[2016-08-10 18:58] VITALS: BP 107/70
[2016-08-10] MEDS: METOPROLOL TARTRATE 25 MG TABLET PO SCH (19:24)
[2016-08-10] MEDS: ATORVASTATIN 20 MG TABLET PO SCH (20:52)
[2016-08-10] MEDS ORDERED: APIXABAN 5 MG TABLET PO SCH (21:00)
[2016-08-10] MEDS: APIXABAN 2.5 MG TABLET PO SCH (21:15)
[2016-08-10] MEDS ORDERED: INSULIN REGULAR 100 UNITS/ML, 3ML VIAL SQ-INSULIN ONE (21:30)
[2016-08-11 00:50] VITALS: BP 102/67
[2016-08-11] MEDS: DOXYCYCLINE 100 MG in DEXTROSE 5% 250 ML IV SCH ×2 (01:38→12:52)
[2016-08-11 04:53] LABS: BLOOD UREA NITROGEN 80 mg/dL (7-18)
[2016-08-11] MEDS: METOPROLOL TARTRATE 25 MG TABLET PO SCH ×2 (05:36→16:49)
[2016-08-11] MEDS: methylPREDNISolone SOD SUCC 125 MG/2 ML IVPush SCH (05:36)
[2016-08-11] MEDS ORDERED: REGADENOSON 0.4 MG/5 ML SYRINGE ONE (07:54)
[2016-08-11 08:00] VITALS: BP 109/72
[2016-08-11] MEDS ORDERED: PNEUMOCOCCAL 23 VACCINE IM-VACC ONE (08:00)
[2016-08-11] MEDS: MULTIVITAMIN 1 TABLET PO SCH (08:13)
[2016-08-11] MEDS: TAMSULOSIN 0.4 MG CAP.ER.24H PO SCH ×2 (08:13→21:13)
[2016-08-11] MEDS: PANTOPRAZOLE 40 MG IV IVPush SCH (08:13)
[2016-08-11] MEDS: GUAIFENESIN ER 600 MG TABLET PO SCH ×2 (08:13→21:13)
[2016-08-11] MEDS: GABAPENTIN 300 MG CAPSULE PO SCH ×2 (08:13→21:13)
[2016-08-11] MEDS: APIXABAN 2.5 MG TABLET PO SCH ×2 (08:13→21:13)
[2016-08-11] MEDS: ASPIRIN 81 MG TABLET EC PO SCH (08:13)
[2016-08-11] MEDS: INSULIN REGULAR 100 UNITS/ML, 3ML VIAL SQ-INSULIN SCH ×4 (08:13→21:11)
[2016-08-11] MEDS: SODIUM CHLORIDE FLUSH 10ML SYR IVF SCH (08:14)
[2016-08-11] MEDS: CEFTRIAXONE 2 GM in SODIUM CHLORIDE 0.9% 50 ML IVPB SCH (12:00)
[2016-08-11 14:00] VITALS: BP 103/66
[2016-08-11 16:45] VITALS: BP 113/71
[2016-08-11 20:07] VITALS: BP 107/65
[2016-08-11] MEDS ORDERED: INSULIN REGULAR 100 UNITS/ML, 3ML VIAL SQ-INSULIN ONE (21:00)
[2016-08-11] MEDS: ATORVASTATIN 20 MG TABLET PO SCH (21:13)
[2016-08-12] MEDS: DOXYCYCLINE 100 MG in DEXTROSE 5% 250 ML IV SCH ×2 (01:11→14:14)
[2016-08-12] MEDS: SODIUM CHLORIDE FLUSH 10ML SYR IVF SCH ×3 (01:11→21:07)
[2016-08-12 01:18] VITALS: BP 116/68
[2016-08-12 05:36] VITALS: BP 102/65
[2016-08-12 06:07] LABS: BLOOD UREA NITROGEN 98 mg/dL (7-18)
[2016-08-12 06:35] VITALS: BP 119/75
[2016-08-12] MEDS: INSULIN REGULAR 100 UNITS/ML, 3ML VIAL SQ-INSULIN SCH ×4 (08:24→21:08)
[2016-08-12] MEDS: METOPROLOL TARTRATE 25 MG TABLET PO SCH (08:25)
[2016-08-12] MEDS: GUAIFENESIN ER 600 MG TABLET PO SCH ×2 (08:25→21:08)
[2016-08-12] MEDS: PANTOPRAZOLE 40 MG IV IVPush SCH (08:25)
[2016-08-12] MEDS: APIXABAN 2.5 MG TABLET PO SCH ×2 (08:25→21:08)
[2016-08-12] MEDS: MULTIVITAMIN 1 TABLET PO SCH (08:26)
[2016-08-12] MEDS: TAMSULOSIN 0.4 MG CAP.ER.24H PO SCH ×2 (08:26→21:08)
[2016-08-12] MEDS: ASPIRIN 81 MG TABLET EC PO SCH (08:26)
[2016-08-12] MEDS: GABAPENTIN 300 MG CAPSULE PO SCH ×2 (08:26→21:08)
[2016-08-12] MEDS: CEFTRIAXONE PMX 2GM/50ML 50 ML IVPB SCH (11:39)
[2016-08-12] MEDS ORDERED: SODIUM CHLORIDE 0.9% 1,000 ML IV SCH (13:00)
[2016-08-12 13:44] VITALS: BP 107/66
[2016-08-12] MEDS ORDERED: METOPROLOL SUCCINATE 25 MG TAB.ER.24H PO SCH (18:00)
[2016-08-12 19:08] VITALS: BP 118/73
[2016-08-12] MEDS: ATORVASTATIN 20 MG TABLET PO SCH (21:08)
[2016-08-13] MEDS: DOXYCYCLINE 100 MG in DEXTROSE 5% 250 ML IV SCH ×2 (01:24→13:27)
[2016-08-13 01:39] VITALS: BP 121/75
[2016-08-13 05:56] LABS: BLOOD UREA NITROGEN 91 mg/dL (7-18)
[2016-08-13 06:02] LABS: ASPARTATE AMINO TRANSFERASE 44 U/L (15-37); TOTAL IRON BINDING CAPACITY 246 mcg/dL (250-450)
[2016-08-13 07:10] VITALS: BP 116/75
[2016-08-13] MEDS: APIXABAN 2.5 MG TABLET PO SCH ×2 (08:43→21:21)
[2016-08-13] MEDS: TAMSULOSIN 0.4 MG CAP.ER.24H PO SCH ×2 (08:44→21:21)
[2016-08-13] MEDS: ASPIRIN 81 MG TABLET EC PO SCH (08:44)
[2016-08-13] MEDS: GABAPENTIN 300 MG CAPSULE PO SCH ×2 (08:44→21:22)
[2016-08-13] MEDS: PANTOPRAZOLE 40 MG IV IVPush SCH (08:44)
[2016-08-13] MEDS: GUAIFENESIN ER 600 MG TABLET PO SCH ×2 (08:44→21:22)
[2016-08-13] MEDS: INSULIN REGULAR 100 UNITS/ML, 3ML VIAL SQ-INSULIN SCH ×4 (08:44→21:21)
[2016-08-13] MEDS: MULTIVITAMIN 1 TABLET PO SCH (08:44)
[2016-08-13] MEDS: SODIUM CHLORIDE FLUSH 10ML SYR IVF SCH ×2 (08:48→21:21)
[2016-08-13] MEDS: IRON SUCROSE COMPLEX 100MG/5ML IV SCH (10:38)
[2016-08-13] MEDS: CEFTRIAXONE PMX 2GM/50ML 50 ML IVPB SCH (11:41)
[2016-08-13] MEDS: SODIUM CHLORIDE 0.9% 1,000 ML IV SCH (11:41)
[2016-08-13 13:36] VITALS: BP 126/71
[2016-08-13] MEDS: CARVEDILOL 6.25 MG TABLET PO SCH (18:00)
[2016-08-13 19:42] VITALS: BP 126/78
[2016-08-13] MEDS: ATORVASTATIN 20 MG TABLET PO SCH (21:21)
[2016-08-14] MEDS: DOXYCYCLINE 100 MG in DEXTROSE 5% 250 ML IV SCH (01:00)
[2016-08-14 02:10] VITALS: BP 128/75
[2016-08-14 05:38] VITALS: BP 120/70
[2016-08-14] MEDS: CARVEDILOL 6.25 MG TABLET PO SCH ×4 (05:41→20:00)
[2016-08-14 06:32] LABS: ASPARTATE AMINO TRANSFERASE 23 U/L (15-37); BLOOD UREA NITROGEN 69 mg/dL (7-18)
[2016-08-14] MEDS: INSULIN REGULAR 100 UNITS/ML, 3ML VIAL SQ-INSULIN SCH ×4 (07:00→19:58)
[2016-08-14 07:01] VITALS: BP 116/72
[2016-08-14] MEDS: SODIUM CHLORIDE FLUSH 10ML SYR IVF SCH ×2 (07:46→19:58)
[2016-08-14] MEDS: SODIUM CHLORIDE 0.9% 1,000 ML IV SCH (08:00)
[2016-08-14] MEDS: ASPIRIN 81 MG TABLET EC PO SCH (09:10)
[2016-08-14] MEDS: MULTIVITAMIN 1 TABLET PO SCH (09:11)
[2016-08-14] MEDS: TAMSULOSIN 0.4 MG CAP.ER.24H PO SCH ×2 (09:11→19:57)
[2016-08-14] MEDS: GUAIFENESIN ER 600 MG TABLET PO SCH ×2 (09:11→19:57)
[2016-08-14] MEDS: IRON SUCROSE COMPLEX 100MG/5ML IV SCH (09:11)
[2016-08-14] MEDS: GABAPENTIN 300 MG CAPSULE PO SCH ×2 (09:11→20:02)
[2016-08-14] MEDS: APIXABAN 2.5 MG TABLET PO SCH ×2 (09:11→19:57)
[2016-08-14] MEDS ORDERED: ERGOCALCIFEROL 50,000 UNIT CAPSULE PO SCH (09:30)
[2016-08-14] MEDS: FUROSEMIDE 40 MG TABLET PO SCH (11:07)
[2016-08-14] MEDS: CEFTRIAXONE PMX 2GM/50ML 50 ML IVPB SCH (11:34)
[2016-08-14 13:09] VITALS: BP 115/79
[2016-08-14 18:55] VITALS: BP 126/78
[2016-08-14] MEDS: ATORVASTATIN 20 MG TABLET PO SCH (19:57)
[2016-08-15 01:56] VITALS: BP 122/71
[2016-08-15 05:58] VITALS: BP 126/67
[2016-08-15] MEDS: CARVEDILOL 6.25 MG TABLET PO SCH (06:01)
[2016-08-15 06:42] LABS: BLOOD UREA NITROGEN 59 mg/dL (7-18)
[2016-08-15] MEDS: INSULIN REGULAR 100 UNITS/ML, 3ML VIAL SQ-INSULIN SCH ×2 (07:00→12:10)
[2016-08-15 07:22] VITALS: BP 112/73
[2016-08-15 07:36] LABS: DIFF TOTAL CELLS COUNTED 100 CELL DIFF
[2016-08-15 07:39] LABS: VERIFY COUNTS? YES
[2016-08-15 07:40] LABS: ANISOCYTOSIS 1+
[2016-08-15] MEDS: SODIUM CHLORIDE FLUSH 10ML SYR IVF SCH (08:49)
[2016-08-15] MEDS: APIXABAN 2.5 MG TABLET PO SCH (08:50)
[2016-08-15] MEDS: GUAIFENESIN ER 600 MG TABLET PO SCH (08:50)
[2016-08-15] MEDS: ASPIRIN 81 MG TABLET EC PO SCH (08:50)
[2016-08-15] MEDS: MULTIVITAMIN 1 TABLET PO SCH (08:50)
[2016-08-15] MEDS: GABAPENTIN 300 MG CAPSULE PO SCH (08:50)
[2016-08-15] MEDS: IRON SUCROSE COMPLEX 100MG/5ML IV SCH (08:50)
[2016-08-15] MEDS: FUROSEMIDE 40 MG TABLET PO SCH (08:52)
[2016-08-15] MEDS ORDERED: ASPI-621 PO (11:08)
[2016-08-15] MEDS ORDERED: CARV6.2512 PO (11:08)
[2016-08-15] MEDS ORDERED: FURO40TA6 PO (11:08)
[2016-08-15] MEDS ORDERED: ERGO500017 PO (11:08)
[2016-08-15] MEDS ORDERED: APIX2.5T PO (11:08)
[2016-08-15] MEDS ORDERED: GUAI600T22 PO (11:08)
[2016-08-15] MEDS ORDERED: CEFD300C37 PO (11:10)
[2016-08-15] MEDS ORDERED: DOXY100T PO (11:11)
[2016-08-15] MEDS ORDERED: PRED20TA PO (11:12)
[2016-08-15] MEDS: TAMSULOSIN 0.4 MG CAP.ER.24H PO SCH (11:55)
[2016-08-15] MEDS: CEFTRIAXONE PMX 2GM/50ML 50 ML IVPB SCH (11:56)
[2016-08-15 12:52] VITALS: BP 132/78
== END 2016-08-15 15:30 | disposition home or self-care (01) | DRG 682 ==
LOC: ED 10:53 → EDIP 12:04 → 5SO 15:02 → DCLOUNGE 08-15 14:28
PROVIDERS: ADMIT Family Medicine; ATTEND Family Medicine
DX: N17.9 Acute kidney failure, unspecified (principal); J96.01 Acute respiratory failure with hypoxia; I50.43 Acute on chronic combined systolic (congestive) and diastolic (congestive) heart failure; J15.9 Unspecified bacterial pneumonia; I13.0 Hypertensive heart and chronic kidney disease with heart failure and stage 1 through stage 4 chronic kidney disease, or unspecified chronic kidney disease; J44.1 Chronic obstructive pulmonary disease with (acute) exacerbation; D68.69 Other thrombophilia; E44.0 Moderate protein-calorie malnutrition; I42.9 Cardiomyopathy, unspecified; I47.2 Ventricular tachycardia; J44.0 Chronic obstructive pulmonary disease with (acute) lower respiratory infection; N18.3 Chronic kidney disease, stage 3 (moderate); B34.9 Viral infection, unspecified; D50.9 Iron deficiency anemia, unspecified; D63.8 Anemia in other chronic diseases classified elsewhere; E11.22 Type 2 diabetes mellitus with diabetic chronic kidney disease; E11.319 Type 2 diabetes mellitus with unspecified diabetic retinopathy without macular edema; E11.42 Type 2 diabetes mellitus with diabetic polyneuropathy; E66.01 Morbid (severe) obesity due to excess calories; E78.5 Hyperlipidemia, unspecified; G89.29 Other chronic pain; I25.10 Atherosclerotic heart disease of native coronary artery without angina pectoris; M54.5 Low back pain; I95.9 Hypotension, unspecified; E87.5 Hyperkalemia; I27.2 Other secondary pulmonary hypertension; I48.0 Paroxysmal atrial fibrillation; I49.3 Ventricular premature depolarization; N40.0 Benign prostatic hyperplasia without lower urinary tract symptoms; Z68.34 Body mass index [BMI] 34.0-34.9, adult; I25.2 Old myocardial infarction; Z79.01 Long term (current) use of anticoagulants; Z79.4 Long term (current) use of insulin; Z82.49 Family history of ischemic heart disease and other diseases of the circulatory system; Z86.73 Personal history of transient ischemic attack (TIA), and cerebral infarction without residual deficits; Z87.442 Personal history of urinary calculi; Z87.891 Personal history of nicotine dependence; Z95.1 Presence of aortocoronary bypass graft; Z95.2 Presence of prosthetic heart valve; Z95.5 Presence of coronary angioplasty implant and graft; Z99.81 Dependence on supplemental oxygen; Z23 Encounter for immunization; Z89.431 Acquired absence of right foot
CPT/HCPCS: 36415; 36600; 70450; 71010; 78452; 80048; 80053; 80069; 81001; 82306; 82728; 82803; 82947; 82962; 83540; 83550; 83605; 83735; 83880; 83970; 84100; 84145; 84484; 84550; 85025; 87040; 87070; 87205; 90732; 93005; 93017; 96361; 96374; C8929; J0696; J1756; J1815; J1940; J2785; J7060; A9502; C9113; C9898; J2930; J7030; J7512

== ENCOUNTER → 2016-08-18 | Outpatient (CLI) | payer MEDICARE, OTHER ==
[~2016-08-18] MED LIST changes: +APIX2.5T PO; +ASPI-621 PO; +CARV6.2512 PO; +CEFD300C37 PO; +DOXY100T PO; +ERGO500017 PO; +FURO40TA6 PO; +GUAI600T22 PO; +POTA20TA89 PO; +PRED20TA PO
== END | disposition home or self-care (01) ==
LOC: WOUND 10:30
PROVIDERS: ATTEND Physician Assistant
DX: T87.81 Dehiscence of amputation stump (principal); E11.621 Type 2 diabetes mellitus with foot ulcer; L97.511 Non-pressure chronic ulcer of other part of right foot limited to breakdown of skin; Z79.01 Long term (current) use of anticoagulants; I25.10 Atherosclerotic heart disease of native coronary artery without angina pectoris; J44.1 Chronic obstructive pulmonary disease with (acute) exacerbation; E66.01 Morbid (severe) obesity due to excess calories; E11.22 Type 2 diabetes mellitus with diabetic chronic kidney disease; I13.0 Hypertensive heart and chronic kidney disease with heart failure and stage 1 through stage 4 chronic kidney disease, or unspecified chronic kidney disease; N18.3 Chronic kidney disease, stage 3 (moderate); I50.43 Acute on chronic combined systolic (congestive) and diastolic (congestive) heart failure; I48.0 Paroxysmal atrial fibrillation; E78.5 Hyperlipidemia, unspecified; Z79.4 Long term (current) use of insulin; I25.2 Old myocardial infarction; G89.29 Other chronic pain; E11.40 Type 2 diabetes mellitus with diabetic neuropathy, unspecified; E11.36 Type 2 diabetes mellitus with diabetic cataract; I27.2 Other secondary pulmonary hypertension; Z87.891 Personal history of nicotine dependence; Z95.1 Presence of aortocoronary bypass graft; Z86.73 Personal history of transient ischemic attack (TIA), and cerebral infarction without residual deficits; E11.42 Type 2 diabetes mellitus with diabetic polyneuropathy; E11.319 Type 2 diabetes mellitus with unspecified diabetic retinopathy without macular edema; Z87.01 Personal history of pneumonia (recurrent); Z68.37 Body mass index [BMI] 37.0-37.9, adult; E44.1 Mild protein-calorie malnutrition; E11.69 Type 2 diabetes mellitus with other specified complication; M86.171 Other acute osteomyelitis, right ankle and foot; Z72.89 Other problems related to lifestyle; Y83.5 Amputation of limb(s) as the cause of abnormal reaction of the patient, or of later complication, without mention of misadventure at the time of the procedure
CPT/HCPCS: 97597

== ENCOUNTER → 2016-08-26 | Outpatient (CLI) | payer MEDICARE, OTHER | END | disposition home or self-care (01) | LOC: WOUND 10:00 | PROVIDERS: ATTEND Internal Medicine | DX: T81.31XD Disruption of external operation (surgical) wound, not elsewhere classified, subsequent encounter (principal); E11.621 Type 2 diabetes mellitus with foot ulcer; L97.511 Non-pressure chronic ulcer of other part of right foot limited to breakdown of skin; I25.10 Atherosclerotic heart disease of native coronary artery without angina pectoris; J44.1 Chronic obstructive pulmonary disease with (acute) exacerbation; E78.5 Hyperlipidemia, unspecified; E11.22 Type 2 diabetes mellitus with diabetic chronic kidney disease; I13.0 Hypertensive heart and chronic kidney disease with heart failure and stage 1 through stage 4 chronic kidney disease, or unspecified chronic kidney disease; N18.3 Chronic kidney disease, stage 3 (moderate); I50.43 Acute on chronic combined systolic (congestive) and diastolic (congestive) heart failure; I25.2 Old myocardial infarction; E11.69 Type 2 diabetes mellitus with other specified complication; M86.171 Other acute osteomyelitis, right ankle and foot; I48.0 Paroxysmal atrial fibrillation; E11.36 Type 2 diabetes mellitus with diabetic cataract; E11.42 Type 2 diabetes mellitus with diabetic polyneuropathy; E11.319 Type 2 diabetes mellitus with unspecified diabetic retinopathy without macular edema; E66.01 Morbid (severe) obesity due to excess calories; Z68.34 Body mass index [BMI] 34.0-34.9, adult; Z89.431 Acquired absence of right foot; Z95.1 Presence of aortocoronary bypass graft; Z79.01 Long term (current) use of anticoagulants; Z79.4 Long term (current) use of insulin; Z87.891 Personal history of nicotine dependence; Z87.01 Personal history of pneumonia (recurrent); Z86.73 Personal history of transient ischemic attack (TIA), and cerebral infarction without residual deficits; Z72.89 Other problems related to lifestyle | CPT/HCPCS: G0463; WOU0463 ==

== ENCOUNTER 2016-09-05 09:05 | Inpatient (IN) | payer MEDICARE, OTHER ==
[~2016-09-05] VITALS: Ht 182.9 cm; Wt 116.2 kg
[2016-09-05 01:00] VITALS: BP 121/68
[2016-09-05] MEDS ORDERED: MECLIZINE CHEWABLE 25 MG TAB PO ONE (09:30)
[2016-09-05] MEDS ORDERED: MECLIZINE CHEWABLE 25 MG TAB ONE (09:38)
[2016-09-05 10:19] LABS: BLOOD UREA NITROGEN 33 mg/dL (7-18)
[2016-09-05 10:24] LABS: IS PT STATUS REG ER OR PRE ER? YES
[2016-09-05] MEDS ORDERED: SODIUM CHLORIDE FLUSH 10ML SYR IVF PRN (11:00)
[2016-09-05 13:00] VITALS: BP 121/68
[2016-09-05 13:05] VITALS: BP 121/68
[2016-09-05] MEDS ORDERED: MECLIZINE CHEWABLE 25 MG TAB PO PRN (15:00)
[2016-09-05 15:01] VITALS: BP 132/74
[2016-09-05] MEDS: INSULIN ASPART 100 UNITS/ML, PEN SQ-INSULIN SCH ×2 (16:00→21:14)
[2016-09-05] MEDS ORDERED: GADOBUTROL 10 MMOL/10 ML PFS ONE (17:52)
[2016-09-05 18:57] VITALS: BP 124/80
[2016-09-05] MEDS: INSULIN DEGLUDEC 65 UNIT SQ SCH (21:00)
[2016-09-05] MEDS: ATORVASTATIN 20 MG TABLET PO SCH (21:13)
[2016-09-05] MEDS: APIXABAN 5 MG TABLET PO SCH (21:13)
[2016-09-05] MEDS: GABAPENTIN 300 MG CAPSULE PO SCH (21:13)
[2016-09-06 02:00] VITALS: BP_SYST 108; BP_SYST 116; BP_SYST 120; BP_DIAS 63; BP_DIAS 74; BP_DIAS 76
[2016-09-06 06:02] LABS: ASPARTATE AMINO TRANSFERASE 21 U/L (15-37); BLOOD UREA NITROGEN 28 mg/dL (7-18)
[2016-09-06] MEDS: INSULIN ASPART 100 UNITS/ML, PEN SQ-INSULIN SCH ×4 (07:00→21:36)
[2016-09-06 07:10] VITALS: BP_SYST 102; BP_SYST 109; BP_SYST 120; BP_DIAS 66; BP_DIAS 67; BP_DIAS 68
[2016-09-06] MEDS: GABAPENTIN 300 MG CAPSULE PO SCH ×2 (07:58→21:36)
[2016-09-06] MEDS: APIXABAN 5 MG TABLET PO SCH ×2 (07:58→21:36)
[2016-09-06] MEDS: ASPIRIN 81 MG TABLET EC PO SCH (07:58)
[2016-09-06] MEDS: TAMSULOSIN 0.4 MG CAP.ER.24H PO SCH (07:58)
[2016-09-06] MEDS: FUROSEMIDE 40 MG TABLET PO SCH (07:58)
[2016-09-06 13:28] VITALS: BP 93/55
[2016-09-06 13:31] VITALS: BP 101/62
[2016-09-06 13:32] VITALS: BP 126/77
[2016-09-06 20:00] VITALS: BP_SYST 123; BP_SYST 148; BP_SYST 149; BP_DIAS 71; BP_DIAS 78
[2016-09-06] MEDS: INSULIN DEGLUDEC 65 UNIT SQ SCH (21:00)
[2016-09-06] MEDS: ATORVASTATIN 20 MG TABLET PO SCH (21:36)
[2016-09-07 02:00] VITALS: BP 118/74
[2016-09-07] MEDS: ASPIRIN 81 MG TABLET EC PO SCH (05:10)
[2016-09-07 06:00] LABS: BLOOD UREA NITROGEN 28 mg/dL (7-18)
[2016-09-07] MEDS: INSULIN ASPART 100 UNITS/ML, PEN SQ-INSULIN SCH ×4 (07:00→20:21)
[2016-09-07 07:28] VITALS: BP_SYST 112; BP_SYST 113; BP_SYST 117; BP_DIAS 65; BP_DIAS 70; BP_DIAS 74
[2016-09-07] MEDS: FUROSEMIDE 40 MG TABLET PO SCH (08:04)
[2016-09-07] MEDS: TAMSULOSIN 0.4 MG CAP.ER.24H PO SCH (08:04)
[2016-09-07] MEDS: GABAPENTIN 300 MG CAPSULE PO SCH ×2 (08:04→20:21)
[2016-09-07] MEDS: APIXABAN 5 MG TABLET PO SCH ×2 (08:05→20:20)
[2016-09-07 14:10] VITALS: BP_SYST 118; BP_SYST 126; BP_SYST 128; BP_DIAS 63; BP_DIAS 84; BP_DIAS 90
[2016-09-07 19:35] VITALS: BP_SYST 124; BP_SYST 126; BP_SYST 135; BP_DIAS 73; BP_DIAS 78; BP_DIAS 80
[2016-09-07] MEDS: ATORVASTATIN 20 MG TABLET PO SCH (20:21)
[2016-09-07] MEDS: INSULIN DEGLUDEC 65 UNIT SQ SCH (20:21)
[2016-09-08 02:19] VITALS: BP 121/76
[2016-09-08] MEDS: ASPIRIN 81 MG TABLET EC PO SCH (05:56)
[2016-09-08] MEDS: INSULIN ASPART 100 UNITS/ML, PEN SQ-INSULIN SCH ×4 (07:00→20:30)
[2016-09-08 07:17] VITALS: BP_SYST 108; BP_SYST 120; BP_SYST 121; BP_DIAS 60; BP_DIAS 72; BP_DIAS 80
[2016-09-08] MEDS: GABAPENTIN 300 MG CAPSULE PO SCH ×2 (08:46→20:30)
[2016-09-08] MEDS: FUROSEMIDE 40 MG TABLET PO SCH (08:46)
[2016-09-08] MEDS: APIXABAN 5 MG TABLET PO SCH ×2 (08:46→20:30)
[2016-09-08] MEDS: TAMSULOSIN 0.4 MG CAP.ER.24H PO SCH (08:46)
[2016-09-08] MEDS ORDERED: MAGNESIUM SULFATE PMX 2GM/50ML 50 ML IV ONE (10:30)
[2016-09-08 11:56] LABS: BLOOD UREA NITROGEN 28 mg/dL (7-18)
[2016-09-08 13:47] VITALS: BP_SYST 110; BP_SYST 124; BP_SYST 133; BP_DIAS 62; BP_DIAS 68; BP_DIAS 73
[2016-09-08 20:10] VITALS: BP_SYST 126; BP_SYST 141; BP_DIAS 20; BP_DIAS 69; BP_DIAS 84
[2016-09-08] MEDS: INSULIN DEGLUDEC 65 UNIT SQ SCH (20:25)
[2016-09-08] MEDS: ATORVASTATIN 20 MG TABLET PO SCH (20:30)
[2016-09-09 02:00] VITALS: BP_SYST 100; BP_SYST 104; BP_SYST 129; BP_DIAS 59; BP_DIAS 63; BP_DIAS 75
[2016-09-09] MEDS: ASPIRIN 81 MG TABLET EC PO SCH (05:32)
[2016-09-09 07:01] VITALS: BP_SYST 102; BP_SYST 98; BP_SYST 99; BP_DIAS 60; BP_DIAS 67; BP_DIAS 70
[2016-09-09] MEDS: FUROSEMIDE 40 MG TABLET PO SCH (08:15)
[2016-09-09] MEDS: INSULIN ASPART 100 UNITS/ML, PEN SQ-INSULIN SCH ×2 (08:15→11:01)
[2016-09-09] MEDS: APIXABAN 5 MG TABLET PO SCH (08:15)
[2016-09-09] MEDS: TAMSULOSIN 0.4 MG CAP.ER.24H PO SCH (08:15)
[2016-09-09] MEDS: GABAPENTIN 300 MG CAPSULE PO SCH (08:15)
[2016-09-09] MEDS ORDERED: ACETAMINOPHEN 325 MG TABLET PO ONE (09:00)
[2016-09-09 12:11] VITALS: BP 112/76
== END 2016-09-09 14:53 | disposition home or self-care (01) | DRG 149 ==
LOC: ED 10:18 → INTOOBSV 10:58 → EDIP 10:58 → 4EST 13:08 → OBSVTOIN 09-07 08:23
DX: R42 Dizziness and giddiness (principal); D68.59 Other primary thrombophilia; I13.0 Hypertensive heart and chronic kidney disease with heart failure and stage 1 through stage 4 chronic kidney disease, or unspecified chronic kidney disease; M86.8X7 Other osteomyelitis, ankle and foot; D63.8 Anemia in other chronic diseases classified elsewhere; E11.22 Type 2 diabetes mellitus with diabetic chronic kidney disease; E11.69 Type 2 diabetes mellitus with other specified complication; H54.7 Unspecified visual loss; I48.91 Unspecified atrial fibrillation; I25.10 Atherosclerotic heart disease of native coronary artery without angina pectoris; I50.9 Heart failure, unspecified; I65.22 Occlusion and stenosis of left carotid artery; J44.9 Chronic obstructive pulmonary disease, unspecified; N18.3 Chronic kidney disease, stage 3 (moderate); Z79.01 Long term (current) use of anticoagulants; Z82.49 Family history of ischemic heart disease and other diseases of the circulatory system; Z86.73 Personal history of transient ischemic attack (TIA), and cerebral infarction without residual deficits; Z87.442 Personal history of urinary calculi; Z95.1 Presence of aortocoronary bypass graft; Z95.2 Presence of prosthetic heart valve; Z95.3 Presence of xenogenic heart valve
CPT/HCPCS: 36415; 70450; 70553; 71010; 80048; 80053; 81003; 82040; 82962; 83880; 84443; 84484; 85025; 93005; 93880; A9585; G0378; J1815; J3475

== ENCOUNTER → 2017-04-20 | Outpatient (CLI) | payer MEDICARE, OTHER ==
[~2017-04-20] MED LIST changes: +AZIT250T89 PO; +DOCU-131 PO; -DOCU-30 PO; +FLUT1AER INH; -GUAI600T22 PO; +GUAI600T31 PO; +METH4TAB2 PO
== END ==
LOC: CVU 13:31
PROVIDERS: ATTEND Surgery
DX: I65.23 Occlusion and stenosis of bilateral carotid arteries (principal); E11.9 Type 2 diabetes mellitus without complications; E78.5 Hyperlipidemia, unspecified; I69.351 Hemiplegia and hemiparesis following cerebral infarction affecting right dominant side; Z95.2 Presence of prosthetic heart valve
CPT/HCPCS: 93880

== ENCOUNTER 2017-05-27 07:54 | Day surgery (SDC) | payer MEDICARE, OTHER ==
[~2017-05-27] VITALS: Ht 182.9 cm; Wt 126.7 kg
[2017-05-27] MEDS ORDERED: LACTATED RINGERS 1,000 ML IV SCH (08:38)
[2017-05-27 09:12] VITALS: BP 150/85
[2017-05-27] MEDS ORDERED: FURO20TA3 PO (09:20)
[2017-05-27] MEDS ORDERED: ASPI-621 PO (09:20)
[2017-05-27] MEDS ORDERED: CARV6.252 PO (09:20)
[2017-05-27] MEDS ORDERED: PROPOFOL 10 MG/ML, 20ML ONE (09:45)
[2017-05-27] MEDS ORDERED: DEXTROSE 50%, 50ML SYRINGE IVPush ONE (10:00)
[2017-05-27] MEDS ORDERED: HYDROcodone/APAP 7.5-325MG/15ML UDC PO PRN (11:00)
[2017-05-27] MEDS ORDERED: OXYcodone 5 MG/5 ML ORAL.SOL UDC PO PRN (11:00)
[2017-05-27] MEDS ORDERED: ONDANSETRON 2MG/ML, 2ML IVPush PRN (11:00)
[2017-05-27] MEDS ORDERED: ACETAMINOPHEN 325 MG TABLET PO PRN (11:00)
[2017-05-27] MEDS ORDERED: FENTANYL PF 100 MCG/2ML IV PRN (11:00)
[2017-05-27] MEDS ORDERED: ALBUTEROL/IPRATROPIUM 2.5MG/0.5MG, 3 ML NPPB PRN (11:00)
== END 2017-05-27 12:30 ==
LOC: OUT 07:54
PROVIDERS: ATTEND Internal Medicine Gastroenterology
DX: K29.50 Unspecified chronic gastritis without bleeding (principal); K57.30 Diverticulosis of large intestine without perforation or abscess without bleeding; E66.9 Obesity, unspecified; K44.9 Diaphragmatic hernia without obstruction or gangrene; E11.9 Type 2 diabetes mellitus without complications; Z86.73 Personal history of transient ischemic attack (TIA), and cerebral infarction without residual deficits; E11.22 Type 2 diabetes mellitus with diabetic chronic kidney disease; N18.9 Chronic kidney disease, unspecified; Z87.891 Personal history of nicotine dependence
CPT/HCPCS: 43239; 45378; 82962; 88305; J2704; J7120

== ENCOUNTER → 2017-06-03 | Outpatient (CLI) | payer MEDICARE, OTHER ==
[~2017-06-03] MED LIST changes: +CARV6.252 PO
[2017-06-03 15:57] LABS: % IRON SATURATION 10 % (20-55); IRON LEVEL 31 mcg/dL (65-175); TOTAL IRON BINDING CAPACITY 301 mcg/dL (250-450)
[2017-06-03 15:59] LABS: MEAN CORPUSCULAR HEMOGLOBIN 30.6 pg (27.5-34.5); MEAN CORPUSCULAR HGB CONC 32.8 g/dL (33.2-36.2); MEAN CORPUSCULAR VOLUME 93.3 fL (81-97); PLATELET COUNT 199 x10^3/uL (130-400); RED BLOOD COUNT 2.35 x10^6/uL (4.38-5.82); RED CELL DISTRIBUTION WIDTH 28.8 % (9.4-14.8)
[2017-06-03 16:00] LABS: HEMOGRAM NOTE RECHECKED
[2017-06-03 16:16] LABS: BASOPHILS # (AUTO) 0.01 x10^3/uL (0-0.1); BASOPHILS % (AUTO) 0 % (0-1); EOSINOPHILS # (AUTO) 0.08 x10^3/uL (0-0.4); EOSINOPHILS % (AUTO) 1 % (1-7); LYMPHOCYTES # (AUTO) 0.94 x10^3/uL (1-3.4); LYMPHOCYTES % (AUTO) 13 % (22-44); MD MORPH REVIEW ONLY; MONOCYTES # (AUTO) 0.67 x10^3/uL (0.2-0.8); MONOCYTES % (AUTO) 9 % (2-9); NEUTROPHILS # (AUTO) 5.67 x10^3/uL (1.8-6.8); NEUTROPHILS % (AUTO) 77 % (42-75)
[2017-06-03 16:17] LABS: <PLATELET ESTIMATE> ADEQUATE; ANISOCYTOSIS 2+; GIANT PLATELETS 1+
[2017-06-03 16:18] LABS: MICROCYTOSIS 1+; OVALOCYTES 1+; POLYCHROMASIA 2+
[2017-06-03 16:19] LABS: BASOPHILLIC STIPPLING 1+; TEAR DROPS 1+
== END | disposition home or self-care (01) ==
LOC: LAB 14:07
PROVIDERS: ATTEND Internal Medicine Cardiovascular Disease
DX: D64.9 Anemia, unspecified (principal)
CPT/HCPCS: 36415; 83540; 83550; 85025

== ENCOUNTER 2017-06-04 08:39 | Emergency (ER) | payer MEDICARE, OTHER ==
[~2017-06-04] VITALS: Ht 182.9 cm; Wt 131.0 kg
[2017-06-04 10:05] LABS: MEAN CORPUSCULAR HEMOGLOBIN 30.6 pg (27.5-34.5); MEAN CORPUSCULAR VOLUME 92.8 fL (81-97); MEAN PLATELET VOLUME 9.1 fL (7.4-10.4); PLATELET COUNT 199 x10^3/uL (130-400); RED BLOOD COUNT 2.41 x10^6/uL (4.38-5.82); RED CELL DISTRIBUTION WIDTH 28.1 % (9.4-14.8)
[2017-06-04 10:15] LABS: ABSOLUTE RETICS # 0.216 x10^6/uL (0.5-1.5); BASOPHILS # (AUTO) 0.02 x10^3/uL (0-0.1); BASOPHILS % (AUTO) 0 % (0-1); EOSINOPHILS # (AUTO) 0.13 x10^3/uL (0-0.4); EOSINOPHILS % (AUTO) 2 % (1-7); LYMPHOCYTES # (AUTO) 0.77 x10^3/uL (1-3.4); LYMPHOCYTES % (AUTO) 10 % (22-44); MD MORPH REVIEW ONLY; MONOCYTES # (AUTO) 0.83 x10^3/uL (0.2-0.8); MONOCYTES % (AUTO) 10 % (2-9); NEUTROPHILS # (AUTO) 6.25 x10^3/uL (1.8-6.8); NEUTROPHILS % (AUTO) 78 % (42-75); RETICULOCYTE COUNT % 8.96 % (0.5-1.5)
[2017-06-04 10:17] LABS: <PLATELET ESTIMATE> ADEQUATE; <PLT MORPHOLOGY> NORMAL PLT MORPH; ANISOCYTOSIS 2+; MICROCYTOSIS 1+; OVALOCYTES 1+; POLYCHROMASIA 2+; TEAR DROPS 1+
[2017-06-04 10:18] LABS: BASOPHILLIC STIPPLING 1+; INTERNATIONAL NORMALIZED RATIO 1.07 (0.93-1.1)
[2017-06-04 10:41] LABS: FOLATE LEVEL > 20.0 ng/mL (3.1-17.5)
[2017-06-04 10:45] VITALS: BP 119/54
[2017-06-04 10:59] VITALS: BP 119/51
[2017-06-04 11:19] VITALS: BP 115/57
[2017-06-04] MEDS ORDERED: FOLIC ACID 1 MG TABLET PO ONE (11:30)
[2017-06-04 12:40] VITALS: BP 127/56
== END 2017-06-04 13:04 | disposition home or self-care (01) ==
LOC: ED 11:07
DX: D62 Acute posthemorrhagic anemia (principal); E11.9 Type 2 diabetes mellitus without complications; I50.9 Heart failure, unspecified; I48.91 Unspecified atrial fibrillation; E87.5 Hyperkalemia; Z86.73 Personal history of transient ischemic attack (TIA), and cerebral infarction without residual deficits; Z95.1 Presence of aortocoronary bypass graft; Z87.891 Personal history of nicotine dependence
CPT/HCPCS: 36415; 36430; 82607; 82746; 83010; 85025; 85045; 85610; 85730; 86850; 86900; 86923; 99285; P9016

== ENCOUNTER → 2017-06-17 | Outpatient (CLI) | payer MEDICARE, OTHER | LOC: RAD 15:17 | PROVIDERS: ATTEND Internal Medicine Cardiovascular Disease | DX: I82.409 Acute embolism and thrombosis of unspecified deep veins of unspecified lower extremity (principal); R60.0 Localized edema ==

== ENCOUNTER 2017-07-13 09:43 | Inpatient (IN) | payer MEDICARE, OTHER ==
[~2017-07-13] VITALS: Ht 182.9 cm; Wt 131.1 kg
[2017-07-13] MEDS ORDERED: POTA20TA91 PO (10:37)
[2017-07-13 11:10] LABS: BASOPHILS # (AUTO) 0.02 x10^3/uL (0-0.1); BASOPHILS % (AUTO) 0 % (0-1); EOSINOPHILS # (AUTO) 0.09 x10^3/uL (0-0.4); EOSINOPHILS % (AUTO) 1 % (1-7); LYMPHOCYTES # (AUTO) 0.75 x10^3/uL (1-3.4); LYMPHOCYTES % (AUTO) 10 % (22-44); MD NO; MEAN CORPUSCULAR HEMOGLOBIN 25.4 pg (27.5-34.5); MEAN CORPUSCULAR HGB CONC 31.2 g/dL (33.2-36.2); MEAN CORPUSCULAR VOLUME 81.4 fL (81-97); MONOCYTES # (AUTO) 0.78 x10^3/uL (0.2-0.8); MONOCYTES % (AUTO) 10 % (2-9); NEUTROPHILS # (AUTO) 5.94 x10^3/uL (1.8-6.8); NEUTROPHILS % (AUTO) 78 % (42-75); PLATELET COUNT 219 x10^3/uL (130-400); RED BLOOD COUNT 3.63 x10^6/uL (4.38-5.82)
[2017-07-13 11:21] LABS: ALBUMIN 3.2 g/dL (3.4-5.0); ANION GAP 7 mmol/L (5-15); CALCIUM 8.4 mg/dL (8.5-10.1); CHLORIDE 106 mmol/L (98-107); CREATININE 1.53 mg/dL (0.7-1.3)
[2017-07-13] MEDS ORDERED: HEPARIN 5,000 UNITS/ML, 1ML IV ONE (11:30)
[2017-07-13] MEDS ORDERED: HEPARIN 5,000 UNITS/ML, 1ML IV PRN (11:30)
[2017-07-13 11:38] LABS: INTERNATIONAL NORMALIZED RATIO 1.16 (0.93-1.1)
[2017-07-13] MEDS ORDERED: HEPARIN 5,000 UNITS/ML, 1ML ONE (11:38)
[2017-07-13] MEDS ORDERED: HEPARIN 25,000 UNITS/500ML PMX 500 ML ONE (11:38)
[2017-07-13] MEDS: HEPARIN 25,000 UNITS/500ML PMX 500 ML IV PRN (12:04)
[2017-07-13] MEDS ORDERED: DOCUSATE 100 MG CAPSULE PO PRN (13:00)
[2017-07-13] MEDS ORDERED: OXYcodone IR 5MG TABLET PO PRN (13:00)
[2017-07-13] MEDS ORDERED: ONDANSETRON 2MG/ML, 2ML IVPush PRN (13:00)
[2017-07-13 13:05] VITALS: BP 135/91
[2017-07-13] MEDS: INSULIN LISPRO 100 UNITS/ML, PEN SQ-INSULIN SCH ×3 (13:52→20:28)
[2017-07-13 19:41] VITALS: BP 126/87
[2017-07-13] MEDS: TAMSULOSIN 0.4 MG CAP.ER.24H PO SCH (20:20)
[2017-07-13] MEDS: GABAPENTIN 300 MG CAPSULE PO SCH (20:21)
[2017-07-13] MEDS: ATORVASTATIN 20 MG TABLET PO SCH (20:21)
[2017-07-13] MEDS: CARVEDILOL 6.25 MG TABLET PO SCH (20:21)
[2017-07-13] MEDS: INSULIN DEGLUDEC 74 UNIT SQ SCH (20:28)
[2017-07-13] MEDS ORDERED: INSULIN DEGLUDEC 70 UNIT SQ SCH (21:00)
[2017-07-14 03:30] VITALS: BP 125/86
[2017-07-14] MEDS: INSULIN LISPRO 100 UNITS/ML, PEN SQ-INSULIN SCH ×4 (07:00→20:39)
[2017-07-14 07:10] LABS: ALANINE AMINOTRANSFERASE 19 U/L (12-78); ALBUMIN 3.2 g/dL (3.4-5.0); ANION GAP 6 mmol/L (5-15); CALCIUM 8.4 mg/dL (8.5-10.1); CHLORIDE 109 mmol/L (98-107); CREATININE 1.43 mg/dL (0.7-1.3)
[2017-07-14 07:13] LABS: ALKALINE PHOSPHATASE 88 U/L (45-117); BILIRUBIN,TOTAL 0.4 mg/dL (0.2-1.0); TOTAL PROTEIN 7.1 g/dL (6.4-8.2)
[2017-07-14 07:48] VITALS: BP 134/74
[2017-07-14] MEDS: HEPARIN 25,000 UNITS/500ML PMX 500 ML IV PRN (08:13)
[2017-07-14 08:21] LABS: HEMOGLOBIN A1C 8.3 % (4.2-6.3)
[2017-07-14] MEDS: TAMSULOSIN 0.4 MG CAP.ER.24H PO SCH ×2 (09:37→20:31)
[2017-07-14] MEDS: ASPIRIN 81 MG TABLET EC PO SCH (09:37)
[2017-07-14] MEDS: ASCORBIC ACID 500 MG TABLET PO SCH (09:37)
[2017-07-14] MEDS: FUROSEMIDE 40 MG TABLET PO SCH (09:38)
[2017-07-14] MEDS: GABAPENTIN 300 MG CAPSULE PO SCH ×2 (09:38→20:31)
[2017-07-14] MEDS: CARVEDILOL 6.25 MG TABLET PO SCH ×2 (09:39→20:31)
[2017-07-14] MEDS: MULTIVITAMIN 1 TABLET PO SCH (09:39)
[2017-07-14] MEDS: NIACIN 500 MG TABLET.ER PO SCH (09:39)
[2017-07-14] MEDS: FLUTICASONE/VILANTEROL 100-25MCG/INH INH SCH (10:30)
[2017-07-14] MEDS: IRON SUCROSE COMPLEX 100MG/5ML IV SCH (13:23)
[2017-07-14 14:16] VITALS: BP 146/78
[2017-07-14] MEDS ORDERED: ALBUTEROL SULFATE 2.5 MG/3 ML NPPB PRN (17:00)
[2017-07-14] MEDS: ENOXAPARIN 100 MG/ML SQ SCH (17:23)
[2017-07-14] MEDS: ENOXAPARIN 40 MG/0.4 ML SQ SCH (17:23)
[2017-07-14 19:35] VITALS: BP 146/78
[2017-07-14] MEDS: ATORVASTATIN 20 MG TABLET PO SCH (20:31)
[2017-07-14] MEDS: INSULIN DEGLUDEC 74 UNIT SQ SCH (20:39)
[2017-07-15 01:39] VITALS: BP 129/71
[2017-07-15] MEDS: ENOXAPARIN 100 MG/ML SQ SCH ×2 (05:35→18:15)
[2017-07-15] MEDS: ENOXAPARIN 40 MG/0.4 ML SQ SCH ×2 (05:35→18:15)
[2017-07-15] MEDS: NIACIN 500 MG TABLET.ER PO SCH (07:40)
[2017-07-15] MEDS: ASCORBIC ACID 500 MG TABLET PO SCH (07:40)
[2017-07-15] MEDS: FUROSEMIDE 40 MG TABLET PO SCH (07:40)
[2017-07-15] MEDS: TAMSULOSIN 0.4 MG CAP.ER.24H PO SCH ×2 (07:40→20:34)
[2017-07-15] MEDS: IRON SUCROSE COMPLEX 100MG/5ML IV SCH (07:41)
[2017-07-15] MEDS: GABAPENTIN 300 MG CAPSULE PO SCH ×2 (07:41→20:34)
[2017-07-15] MEDS: FLUTICASONE/VILANTEROL 100-25MCG/INH INH SCH (07:41)
[2017-07-15] MEDS: CARVEDILOL 6.25 MG TABLET PO SCH ×2 (07:41→20:34)
[2017-07-15] MEDS: ASPIRIN 81 MG TABLET EC PO SCH (07:41)
[2017-07-15] MEDS: MULTIVITAMIN 1 TABLET PO SCH (07:41)
[2017-07-15] MEDS: INSULIN LISPRO 100 UNITS/ML, PEN SQ-INSULIN SCH ×4 (07:42→20:43)
[2017-07-15 07:51] VITALS: BP 122/69
[2017-07-15 12:39] VITALS: BP 119/67
[2017-07-15] MEDS ORDERED: ACETAMINOPHEN 325 MG TABLET ONE (14:42)
[2017-07-15 19:33] VITALS: BP 142/79
[2017-07-15] MEDS: ATORVASTATIN 20 MG TABLET PO SCH (20:34)
[2017-07-15] MEDS: INSULIN DEGLUDEC 74 UNIT SQ SCH (20:43)
[2017-07-15] MEDS: ACETAMINOPHEN 325 MG TABLET PO PRN (22:29)
[2017-07-16 03:48] VITALS: BP 136/82
[2017-07-16 04:51] LABS: BASOPHILS # (AUTO) 0.02 x10^3/uL (0-0.1); BASOPHILS % (AUTO) 0 % (0-1); EOSINOPHILS # (AUTO) 0.15 x10^3/uL (0-0.4); EOSINOPHILS % (AUTO) 2 % (1-7); LYMPHOCYTES # (AUTO) 1.32 x10^3/uL (1-3.4); LYMPHOCYTES % (AUTO) 18 % (22-44); MD NO; MEAN CORPUSCULAR HEMOGLOBIN 25.1 pg (27.5-34.5); MEAN PLATELET VOLUME 7.9 fL (7.4-10.4); MONOCYTES # (AUTO) 1.31 x10^3/uL (0.2-0.8); MONOCYTES % (AUTO) 18 % (2-9); NEUTROPHILS # (AUTO) 4.68 x10^3/uL (1.8-6.8); NEUTROPHILS % (AUTO) 62 % (42-75); PLATELET COUNT 243 x10^3/uL (130-400); RED BLOOD COUNT 3.78 x10^6/uL (4.38-5.82); RED CELL DISTRIBUTION WIDTH 21.3 % (9.4-14.8)
[2017-07-16 04:55] LABS: ALANINE AMINOTRANSFERASE 17 U/L (12-78); ANION GAP 7 mmol/L (5-15); CALCIUM 8.5 mg/dL (8.5-10.1); CHLORIDE 107 mmol/L (98-107); CREATININE 1.51 mg/dL (0.7-1.3)
[2017-07-16 04:57] LABS: ALKALINE PHOSPHATASE 88 U/L (45-117); BILIRUBIN,TOTAL 0.4 mg/dL (0.2-1.0); TOTAL PROTEIN 6.8 g/dL (6.4-8.2)
[2017-07-16] MEDS: ENOXAPARIN 100 MG/ML SQ SCH ×2 (06:32→18:24)
[2017-07-16] MEDS: ENOXAPARIN 40 MG/0.4 ML SQ SCH ×2 (06:32→18:24)
[2017-07-16] MEDS: INSULIN LISPRO 100 UNITS/ML, PEN SQ-INSULIN SCH ×4 (07:00→20:34)
[2017-07-16 07:45] VITALS: BP 124/65
[2017-07-16] MEDS: FUROSEMIDE 40 MG TABLET PO SCH (09:26)
[2017-07-16] MEDS: GABAPENTIN 300 MG CAPSULE PO SCH ×2 (09:26→20:33)
[2017-07-16] MEDS: TAMSULOSIN 0.4 MG CAP.ER.24H PO SCH ×2 (09:26→20:32)
[2017-07-16] MEDS: NIACIN 500 MG TABLET.ER PO SCH (09:26)
[2017-07-16] MEDS: MULTIVITAMIN 1 TABLET PO SCH (09:26)
[2017-07-16] MEDS: ASPIRIN 81 MG TABLET EC PO SCH (09:26)
[2017-07-16] MEDS: ASCORBIC ACID 500 MG TABLET PO SCH (09:26)
[2017-07-16] MEDS: IRON SUCROSE COMPLEX 100MG/5ML IV SCH (09:27)
[2017-07-16] MEDS: FLUTICASONE/VILANTEROL 100-25MCG/INH INH SCH (09:27)
[2017-07-16] MEDS: CARVEDILOL 6.25 MG TABLET PO SCH ×2 (09:27→20:33)
[2017-07-16] MEDS: ACETAMINOPHEN 325 MG TABLET PO PRN ×2 (15:05→20:33)
[2017-07-16 15:09] VITALS: BP 147/66
[2017-07-16 20:00] VITALS: BP 121/57
[2017-07-16] MEDS: ATORVASTATIN 20 MG TABLET PO SCH (20:36)
[2017-07-16] MEDS ORDERED: INSULIN DEGLUDEC 50 UNIT SQ SCH (21:00)
[2017-07-17 02:00] VITALS: BP 120/54
[2017-07-17] MEDS: ENOXAPARIN 100 MG/ML SQ SCH ×2 (05:03→18:22)
[2017-07-17] MEDS: ENOXAPARIN 40 MG/0.4 ML SQ SCH ×2 (05:03→18:22)
[2017-07-17] MEDS: INSULIN LISPRO 100 UNITS/ML, PEN SQ-INSULIN SCH (07:00)
[2017-07-17 07:20] LABS: BASOPHILS # (AUTO) 0.02 x10^3/uL (0-0.1); BASOPHILS % (AUTO) 0 % (0-1); EOSINOPHILS # (AUTO) 0.18 x10^3/uL (0-0.4); EOSINOPHILS % (AUTO) 2 % (1-7); LYMPHOCYTES # (AUTO) 1.05 x10^3/uL (1-3.4); LYMPHOCYTES % (AUTO) 14 % (22-44); MD NO; MEAN CORPUSCULAR HEMOGLOBIN 25.4 pg (27.5-34.5); MEAN CORPUSCULAR HGB CONC 31.3 g/dL (33.2-36.2); MEAN CORPUSCULAR VOLUME 81.1 fL (81-97); MEAN PLATELET VOLUME 7.3 fL (7.4-10.4); MONOCYTES # (AUTO) 1.17 x10^3/uL (0.2-0.8); MONOCYTES % (AUTO) 15 % (2-9); NEUTROPHILS # (AUTO) 5.16 x10^3/uL (1.8-6.8); NEUTROPHILS % (AUTO) 68 % (42-75); PLATELET COUNT 237 x10^3/uL (130-400); RED BLOOD COUNT 3.78 x10^6/uL (4.38-5.82); RED CELL DISTRIBUTION WIDTH 20.5 % (9.4-14.8)
[2017-07-17 07:30] LABS: ANION GAP 5 mmol/L (5-15); CALCIUM 8.8 mg/dL (8.5-10.1); CHLORIDE 108 mmol/L (98-107); CREATININE 1.33 mg/dL (0.7-1.3)
[2017-07-17] MEDS: ACETAMINOPHEN 325 MG TABLET PO PRN ×2 (07:31→21:46)
[2017-07-17] MEDS ORDERED: DEXTROSE 4 GM TAB.CHEW PO PRN (08:00)
[2017-07-17] MEDS ORDERED: GLUCAGON 1 MG IM PRN (08:00)
[2017-07-17] MEDS ORDERED: DEXTROSE 50%, 50ML SYRINGE IVPush PRN (08:00)
[2017-07-17 08:40] VITALS: BP 115/71
[2017-07-17] MEDS: FLUTICASONE/VILANTEROL 100-25MCG/INH INH SCH (10:49)
[2017-07-17] MEDS: IRON SUCROSE COMPLEX 100MG/5ML IV SCH (10:49)
[2017-07-17] MEDS: CARVEDILOL 6.25 MG TABLET PO SCH ×2 (10:50→21:46)
[2017-07-17] MEDS: ASPIRIN 81 MG TABLET EC PO SCH (10:50)
[2017-07-17] MEDS: SODIUM CHLORIDE FLUSH 10ML SYR IVF SCH ×2 (10:50→21:46)
[2017-07-17] MEDS: GABAPENTIN 300 MG CAPSULE PO SCH ×2 (10:51→21:46)
[2017-07-17] MEDS: FUROSEMIDE 40 MG TABLET PO SCH (10:51)
[2017-07-17] MEDS: NIACIN 500 MG TABLET.ER PO SCH (10:51)
[2017-07-17] MEDS: TAMSULOSIN 0.4 MG CAP.ER.24H PO SCH ×2 (10:51→21:49)
[2017-07-17] MEDS: ASCORBIC ACID 500 MG TABLET PO SCH (10:51)
[2017-07-17] MEDS: MULTIVITAMIN 1 TABLET PO SCH (10:51)
[2017-07-17 13:00] VITALS: BP 120/74
[2017-07-17 18:48] VITALS: BP 115/65
[2017-07-17] MEDS ORDERED: INSULIN DEGLUDEC 35 UNIT SQ SCH (21:00)
[2017-07-17] MEDS ORDERED: INSULIN LISPRO 100 UNITS/ML, PEN SQ-INSULIN SCH (21:00)
[2017-07-17] MEDS: ATORVASTATIN 20 MG TABLET PO SCH (21:46)
[2017-07-18 02:22] VITALS: BP 110/65
[2017-07-18 04:34] LABS: BASOPHILS # (AUTO) 0.02 x10^3/uL (0-0.1); BASOPHILS % (AUTO) 0 % (0-1); EOSINOPHILS # (AUTO) 0.15 x10^3/uL (0-0.4); EOSINOPHILS % (AUTO) 2 % (1-7); LYMPHOCYTES # (AUTO) 1.12 x10^3/uL (1-3.4); LYMPHOCYTES % (AUTO) 14 % (22-44); MD NO; MEAN CORPUSCULAR HEMOGLOBIN 24.8 pg (27.5-34.5); MEAN CORPUSCULAR HGB CONC 30.5 g/dL (33.2-36.2); MEAN CORPUSCULAR VOLUME 81.3 fL (81-97); MEAN PLATELET VOLUME 7.8 fL (7.4-10.4); MONOCYTES # (AUTO) 1.31 x10^3/uL (0.2-0.8); MONOCYTES % (AUTO) 16 % (2-9); NEUTROPHILS # (AUTO) 5.45 x10^3/uL (1.8-6.8); NEUTROPHILS % (AUTO) 68 % (42-75); PLATELET COUNT 264 x10^3/uL (130-400); RED BLOOD COUNT 3.91 x10^6/uL (4.38-5.82); RED CELL DISTRIBUTION WIDTH 21.4 % (9.4-14.8)
[2017-07-18 04:40] LABS: ALBUMIN 3.1 g/dL (3.4-5.0); ANION GAP 6 mmol/L (5-15); CALCIUM 8.5 mg/dL (8.5-10.1); CHLORIDE 106 mmol/L (98-107); CREATININE 1.46 mg/dL (0.7-1.3)
[2017-07-18] MEDS: ENOXAPARIN 40 MG/0.4 ML SQ SCH ×2 (05:38→18:24)
[2017-07-18] MEDS: ENOXAPARIN 100 MG/ML SQ SCH ×2 (05:39→18:24)
[2017-07-18 06:51] VITALS: BP 127/69
[2017-07-18] MEDS: IRON SUCROSE COMPLEX 100MG/5ML IV SCH (10:18)
[2017-07-18] MEDS: SODIUM CHLORIDE FLUSH 10ML SYR IVF SCH ×2 (10:18→20:44)
[2017-07-18] MEDS: FLUTICASONE/VILANTEROL 100-25MCG/INH INH SCH (10:18)
[2017-07-18] MEDS: ASCORBIC ACID 500 MG TABLET PO SCH (10:19)
[2017-07-18] MEDS: ASPIRIN 81 MG TABLET EC PO SCH (10:19)
[2017-07-18] MEDS: MULTIVITAMIN 1 TABLET PO SCH (10:20)
[2017-07-18] MEDS: FUROSEMIDE 40 MG TABLET PO SCH (10:20)
[2017-07-18] MEDS: CARVEDILOL 6.25 MG TABLET PO SCH ×2 (10:21→20:45)
[2017-07-18] MEDS: GABAPENTIN 300 MG CAPSULE PO SCH ×2 (10:21→20:44)
[2017-07-18] MEDS: NIACIN 500 MG TABLET.ER PO SCH (10:21)
[2017-07-18] MEDS: TAMSULOSIN 0.4 MG CAP.ER.24H PO SCH ×2 (10:21→20:44)
[2017-07-18 13:10] VITALS: BP 113/66
[2017-07-18 19:26] VITALS: BP 141/77
[2017-07-18] MEDS: ACETAMINOPHEN 325 MG TABLET PO PRN (20:44)
[2017-07-18] MEDS: ATORVASTATIN 20 MG TABLET PO SCH (20:44)
[2017-07-18] MEDS ORDERED: INSULIN DEGLUDEC 24 UNIT SQ SCH (21:00)
[2017-07-18] MEDS ORDERED: INSULIN DEGLUDEC 34 UNIT SQ SCH (21:00)
[2017-07-19 00:57] VITALS: BP 122/76
[2017-07-19] MEDS: ENOXAPARIN 100 MG/ML SQ SCH (05:22)
[2017-07-19] MEDS: ENOXAPARIN 40 MG/0.4 ML SQ SCH (05:22)
[2017-07-19 05:28] LABS: MEAN CORPUSCULAR HEMOGLOBIN 25.1 pg (27.5-34.5); MEAN CORPUSCULAR HGB CONC 30.8 g/dL (33.2-36.2); MEAN CORPUSCULAR VOLUME 81.4 fL (81-97); MEAN PLATELET VOLUME 7.8 fL (7.4-10.4); PLATELET COUNT 236 x10^3/uL (130-400); RED BLOOD COUNT 3.79 x10^6/uL (4.38-5.82)
[2017-07-19 05:56] LABS: CHLORIDE 106 mmol/L (98-107)
[2017-07-19 05:58] LABS: BASOPHILS # (AUTO) 0.01 x10^3/uL (0-0.1); BASOPHILS % (AUTO) 0 % (0-1); EOSINOPHILS # (AUTO) 0.12 x10^3/uL (0-0.4); EOSINOPHILS % (AUTO) 2 % (1-7); LYMPHOCYTES # (AUTO) 1.08 x10^3/uL (1-3.4); LYMPHOCYTES % (AUTO) 16 % (22-44); MD SCAN; MONOCYTES # (AUTO) 1.17 x10^3/uL (0.2-0.8); MONOCYTES % (AUTO) 17 % (2-9); NEUTROPHILS % (AUTO) 65 % (42-75)
[2017-07-19 06:07] LABS: ANION GAP 9 mmol/L (5-15)
[2017-07-19 06:09] LABS: ALANINE AMINOTRANSFERASE 23 U/L (12-78); ALKALINE PHOSPHATASE 88 U/L (45-117); BILIRUBIN,TOTAL 0.6 mg/dL (0.2-1.0); CALCIUM 8.4 mg/dL (8.5-10.1); CREATININE 1.55 mg/dL (0.7-1.3); TOTAL PROTEIN 6.8 g/dL (6.4-8.2)
[2017-07-19 06:38] VITALS: BP 126/74
[2017-07-19] MEDS ORDERED: INSU100I32 SQ (08:35)
[2017-07-19] MEDS ORDERED: POTA20TA89 PO (08:35)
[2017-07-19] MEDS ORDERED: ENOX120S5 SQ (08:35)
[2017-07-19] MEDS: ASPIRIN 81 MG TABLET EC PO SCH (08:37)
[2017-07-19] MEDS: TAMSULOSIN 0.4 MG CAP.ER.24H PO SCH (08:38)
[2017-07-19] MEDS: IRON SUCROSE COMPLEX 100MG/5ML IV SCH (08:38)
[2017-07-19] MEDS: ASCORBIC ACID 500 MG TABLET PO SCH (08:38)
[2017-07-19] MEDS: FLUTICASONE/VILANTEROL 100-25MCG/INH INH SCH (08:38)
[2017-07-19] MEDS: NIACIN 500 MG TABLET.ER PO SCH (08:38)
[2017-07-19] MEDS: CARVEDILOL 6.25 MG TABLET PO SCH (08:39)
[2017-07-19] MEDS: MULTIVITAMIN 1 TABLET PO SCH (08:39)
[2017-07-19] MEDS: FUROSEMIDE 40 MG TABLET PO SCH (08:39)
[2017-07-19] MEDS: GABAPENTIN 300 MG CAPSULE PO SCH (08:39)
[2017-07-19] MEDS: SODIUM CHLORIDE FLUSH 10ML SYR IVF SCH (08:39)
[2017-07-19 13:14] VITALS: BP 128/68
== END 2017-07-19 13:50 | disposition home or self-care (01) | DRG 300 ==
LOC: ED 11:21 → EDIP 11:26 → ED 11:49 → SUATTDRO 11:55 → 3NW 12:50
PROVIDERS: ADMIT Internal Medicine; ATTEND Internal Medicine
DX: I82.401 Acute embolism and thrombosis of unspecified deep veins of right lower extremity (principal); I13.0 Hypertensive heart and chronic kidney disease with heart failure and stage 1 through stage 4 chronic kidney disease, or unspecified chronic kidney disease; E11.22 Type 2 diabetes mellitus with diabetic chronic kidney disease; I48.0 Paroxysmal atrial fibrillation; I50.22 Chronic systolic (congestive) heart failure; D50.9 Iron deficiency anemia, unspecified; E11.649 Type 2 diabetes mellitus with hypoglycemia without coma; E66.01 Morbid (severe) obesity due to excess calories; E78.5 Hyperlipidemia, unspecified; I25.10 Atherosclerotic heart disease of native coronary artery without angina pectoris; J44.9 Chronic obstructive pulmonary disease, unspecified; I48.2 Chronic atrial fibrillation; N18.3 Chronic kidney disease, stage 3 (moderate); N40.0 Benign prostatic hyperplasia without lower urinary tract symptoms; Z66 Do not resuscitate; Z79.01 Long term (current) use of anticoagulants; Z79.4 Long term (current) use of insulin; Z86.73 Personal history of transient ischemic attack (TIA), and cerebral infarction without residual deficits; Z89.421 Acquired absence of other right toe(s); Z87.891 Personal history of nicotine dependence; Z95.1 Presence of aortocoronary bypass graft; Z95.2 Presence of prosthetic heart valve; Z96.651 Presence of right artificial knee joint; Z68.39 Body mass index [BMI] 39.0-39.9, adult
CPT/HCPCS: 36415; 80048; 80053; 82040; 82947; 82962; 83036; 83735; 84100; 85025; 85520; 85610; 85730; 86140; 96374; 96375; J1644; J1650; J1756; J1815

== ENCOUNTER 2017-08-31 09:03 | Inpatient (IN) | payer MEDICARE, OTHER ==
[~2017-08-31] VITALS: Ht 182.9 cm; Wt 135.4 kg
[~2017-08-31 09:03] MED LIST changes: +ENOX120S5 SQ; +POTA20TA91 PO
[2017-08-31] MEDS ORDERED: RIVA15TA PO (09:35)
[2017-08-31 10:13] LABS: ALANINE AMINOTRANSFERASE 22 U/L (12-78); ALBUMIN 3.3 g/dL (3.4-5.0); ANION GAP 5 mmol/L (5-15); CALCIUM 8.8 mg/dL (8.5-10.1); CHLORIDE 110 mmol/L (98-107); CREATININE 1.64 mg/dL (0.7-1.3)
[2017-08-31 10:17] LABS: ALKALINE PHOSPHATASE 75 U/L (45-117); BILIRUBIN,TOTAL 0.6 mg/dL (0.2-1.0); TOTAL PROTEIN 6.8 g/dL (6.4-8.2); TROPONIN I < 0.015 ng/mL (0.000-0.045)
[2017-08-31 10:34] LABS: MEAN CORPUSCULAR HEMOGLOBIN 28.8 pg (27.5-34.5); MEAN CORPUSCULAR HGB CONC 32.2 g/dL (33.2-36.2); MEAN CORPUSCULAR VOLUME 89.7 fL (81-97); MEAN PLATELET VOLUME 8.1 fL (7.4-10.4); PLATELET COUNT 158 x10^3/uL (130-400); RED BLOOD COUNT 4.51 x10^6/uL (4.38-5.82); RED CELL DISTRIBUTION WIDTH 27.4 % (9.4-14.8)
[2017-08-31] MEDS ORDERED: INSU200I4 SQ (10:40)
[2017-08-31 10:58] LABS: BASOPHILS # (AUTO) 0.01 x10^3/uL (0-0.1); BASOPHILS % (AUTO) 0 % (0-1); EOSINOPHILS # (AUTO) 0.12 x10^3/uL (0-0.4); EOSINOPHILS % (AUTO) 2 % (1-7); LYMPHOCYTES # (AUTO) 0.69 x10^3/uL (1-3.4); LYMPHOCYTES % (AUTO) 10 % (22-44); MD SCAN; MONOCYTES % (AUTO) 14 % (2-9); NEUTROPHILS # (AUTO) 4.93 x10^3/uL (1.8-6.8); NEUTROPHILS % (AUTO) 74 % (42-75)
[2017-08-31 11:01] LABS: INTERNATIONAL NORMALIZED RATIO 1.46 (0.93-1.1); PROTHROMBIN TIME 15.1 Seconds (9.6-11.5)
[2017-08-31] MEDS ORDERED: CEFTRIAXONE PMX 1GM/50ML 50 ML ONE (13:37)
[2017-08-31] MEDS ORDERED: CEFTRIAXONE 1,000 MG in SODIUM CHLORIDE 0.9% 50 ML IVPB ONE (14:00)
[2017-08-31] MEDS ORDERED: SODIUM CHLORIDE FLUSH 10ML SYR IVF ONE (14:00)
[2017-08-31] MEDS ORDERED: FUROSEMIDE 40 MG/4 ML IV ONE (14:30)
[2017-08-31] MEDS ORDERED: SODIUM CHLORIDE FLUSH 10ML SYR IVF PRN (16:00)
[2017-08-31] MEDS ORDERED: FUROSEMIDE 40 MG/4 ML ONE (16:06)
[2017-08-31] MEDS ORDERED: LABETALOL 5MG/ML, 20ML IVPush PRN (16:30)
[2017-08-31] MEDS ORDERED: DOCUSATE 100 MG CAPSULE PO PRN (16:30)
[2017-08-31] MEDS ORDERED: ONDANSETRON ODT 4 MG PO PRN (16:30)
[2017-08-31 16:42] VITALS: BP 141/81
[2017-08-31 17:30] LABS: FREE T4 (FREE THYROXINE) 1.1 ng/dL (0.76-1.46); THYROID STIMULATING HORMONE 2.59 mIU/L (0.358-3.740)
[2017-08-31] MEDS: CARVEDILOL 6.25 MG TABLET PO SCH (17:51)
[2017-08-31] MEDS ORDERED: RIVAROXABAN 15 MG TABLET PO SCH (18:00)
[2017-08-31] MEDS ORDERED: VANCOMYCIN IV SCH (18:30)
[2017-08-31] MEDS ORDERED: VANCOMYCIN PER PHARMACY MC PRN (18:30)
[2017-08-31] MEDS ORDERED: CEFTRIAXONE 1,000 MG in SODIUM CHLORIDE 0.9% 50 ML IV SCH (18:30)
[2017-08-31] MEDS ORDERED: PHARMACOKINETIC CONSULTATION MC ONE (19:00)
[2017-08-31] MEDS ORDERED: PHARMACOKINETIC MONITORING MC PRN (19:00)
[2017-08-31] MEDS ORDERED: VANCOMYCIN 2,000 MG in SODIUM CHLORIDE 0.9% 500 ML IV ONE (19:00)
[2017-08-31] MEDS: ALBUTEROL/IPRATROPIUM 2.5MG/0.5MG, 3 ML NPPB SCH (21:07)
[2017-08-31] MEDS: ATORVASTATIN 10 MG TABLET PO SCH (21:34)
[2017-08-31] MEDS: GABAPENTIN 300 MG CAPSULE PO SCH (21:42)
[2017-08-31] MEDS: TAMSULOSIN 0.4 MG CAP.ER.24H PO SCH (21:43)
[2017-08-31] MEDS: INSULIN DEGLUDEC 56 UNIT SQ SCH (21:43)
[2017-09-01] MEDS: ACETAMINOPHEN 325 MG TABLET PO PRN (00:47)
[2017-09-01] MEDS: ALBUTEROL/IPRATROPIUM 2.5MG/0.5MG, 3 ML NPPB SCH ×4 (02:00→20:46)
[2017-09-01 04:00] VITALS: BP 125/61
[2017-09-01 04:36] LABS: CHLORIDE 110 mmol/L (98-107)
[2017-09-01 04:39] LABS: MEAN CORPUSCULAR HEMOGLOBIN 28.9 pg (27.5-34.5); MEAN CORPUSCULAR HGB CONC 31.9 g/dL (33.2-36.2); MEAN CORPUSCULAR VOLUME 90.6 fL (81-97); MEAN PLATELET VOLUME 8.4 fL (7.4-10.4); PLATELET COUNT 169 x10^3/uL (130-400); RED BLOOD COUNT 4.38 x10^6/uL (4.38-5.82); RED CELL DISTRIBUTION WIDTH 27.1 % (9.4-14.8)
[2017-09-01 04:41] LABS: ANION GAP 6 mmol/L (5-15); CALCIUM 8.7 mg/dL (8.5-10.1); CREATININE 1.72 mg/dL (0.7-1.3)
[2017-09-01 05:45] LABS: BASOPHILS # (AUTO) 0.05 x10^3/uL (0-0.1); BASOPHILS % (AUTO) 1 % (0-1); EOSINOPHILS # (AUTO) 0.14 x10^3/uL (0-0.4); EOSINOPHILS % (AUTO) 2 % (1-7); LYMPHOCYTES # (AUTO) 0.99 x10^3/uL (1-3.4); LYMPHOCYTES % (AUTO) 13 % (22-44); MD SCAN; MONOCYTES # (AUTO) 1.08 x10^3/uL (0.2-0.8); MONOCYTES % (AUTO) 14 % (2-9); NEUTROPHILS # (AUTO) 5.45 x10^3/uL (1.8-6.8); NEUTROPHILS % (AUTO) 71 % (42-75)
[2017-09-01] MEDS: CARVEDILOL 6.25 MG TABLET PO SCH ×2 (08:58→18:05)
[2017-09-01] MEDS: MULTIVITAMIN 1 TABLET PO SCH (08:58)
[2017-09-01] MEDS: RIVAROXABAN 15 MG TABLET PO SCH (08:58)
[2017-09-01] MEDS: NIACIN 500 MG TABLET.ER PO SCH (08:58)
[2017-09-01] MEDS: GABAPENTIN 300 MG CAPSULE PO SCH ×2 (08:58→21:06)
[2017-09-01] MEDS: ASCORBIC ACID 500 MG TABLET PO SCH (08:59)
[2017-09-01] MEDS: TAMSULOSIN 0.4 MG CAP.ER.24H PO SCH ×2 (08:59→21:06)
[2017-09-01] MEDS ORDERED: POTASSIUM CHLORIDE 20 MEQ TAB.ER.PRT PO SCH (09:00)
[2017-09-01] MEDS: FLUTICASONE/VILANTEROL 100-25MCG/INH INH SCH (09:00)
[2017-09-01] MEDS ORDERED: INSULIN DEGLUDEC 56 UNIT SQ SCH (09:00)
[2017-09-01 09:22] LABS: VANCOMYCIN,RANDOM 17.8 mcg/mL
[2017-09-01 11:14] VITALS: BP 127/84
[2017-09-01] MEDS ORDERED: FUROSEMIDE 20 MG/2 ML IV ONE (13:00)
[2017-09-01] MEDS: FUROSEMIDE 20 MG/2 ML IV SCH (16:56)
[2017-09-01 19:00] VITALS: BP 144/72
[2017-09-01] MEDS: INSULIN DEGLUDEC 56 UNIT SQ SCH (21:00)
[2017-09-01] MEDS: ATORVASTATIN 10 MG TABLET PO SCH (21:06)
[2017-09-02 01:20] VITALS: BP 132/74
[2017-09-02 02:00] VITALS: BP 122/62
[2017-09-02] MEDS: ALBUTEROL/IPRATROPIUM 2.5MG/0.5MG, 3 ML NPPB SCH ×4 (02:47→21:17)
[2017-09-02 05:19] LABS: CHLORIDE 107 mmol/L (98-107)
[2017-09-02 05:24] LABS: ANION GAP 7 mmol/L (5-15); CALCIUM 8.8 mg/dL (8.5-10.1)
[2017-09-02] MEDS: CARVEDILOL 6.25 MG TABLET PO SCH ×2 (05:48→18:23)
[2017-09-02 07:03] VITALS: BP 110/59
[2017-09-02] MEDS: ASCORBIC ACID 500 MG TABLET PO SCH (08:02)
[2017-09-02] MEDS: FUROSEMIDE 20 MG/2 ML IV SCH (08:02)
[2017-09-02] MEDS: GABAPENTIN 300 MG CAPSULE PO SCH ×2 (08:02→20:57)
[2017-09-02] MEDS: MULTIVITAMIN 1 TABLET PO SCH (08:02)
[2017-09-02] MEDS: TAMSULOSIN 0.4 MG CAP.ER.24H PO SCH ×2 (08:02→20:57)
[2017-09-02] MEDS: RIVAROXABAN 15 MG TABLET PO SCH (08:02)
[2017-09-02] MEDS: NIACIN 500 MG TABLET.ER PO SCH (08:02)
[2017-09-02] MEDS: FLUTICASONE/VILANTEROL 100-25MCG/INH INH SCH (12:00)
[2017-09-02] MEDS: FUROSEMIDE 40 MG/4 ML IV SCH (16:33)
[2017-09-02] MEDS: INSULIN LISPRO 100 UNITS/ML, PEN SQ-INSULIN SCH ×2 (16:53→21:07)
[2017-09-02] MEDS: ATORVASTATIN 10 MG TABLET PO SCH (20:57)
[2017-09-02] MEDS: INSULIN DEGLUDEC 56 UNIT SQ SCH (21:00)
[2017-09-03] MEDS: ALBUTEROL/IPRATROPIUM 2.5MG/0.5MG, 3 ML NPPB SCH ×4 (02:18→21:54)
[2017-09-03 04:00] VITALS: BP 132/66
[2017-09-03 04:37] LABS: MEAN CORPUSCULAR HEMOGLOBIN 28.8 pg (27.5-34.5); MEAN CORPUSCULAR HGB CONC 31.8 g/dL (33.2-36.2); MEAN CORPUSCULAR VOLUME 90.5 fL (81-97); RED BLOOD COUNT 4.25 x10^6/uL (4.38-5.82); RED CELL DISTRIBUTION WIDTH 25.7 % (9.4-14.8)
[2017-09-03 04:49] LABS: ALBUMIN 3.2 g/dL (3.4-5.0); ANION GAP 5 mmol/L (5-15); CALCIUM 9.1 mg/dL (8.5-10.1); CHLORIDE 108 mmol/L (98-107); CREATININE 1.77 mg/dL (0.7-1.3); TOTAL IRON BINDING CAPACITY 271 mcg/dL (250-450)
[2017-09-03 05:03] LABS: % IRON SATURATION 6 % (20-55); IRON LEVEL 17 mcg/dL (65-175)
[2017-09-03 05:30] LABS: MEAN PLATELET VOLUME 8.2 fL (7.4-10.4); PLATELET COUNT 142 x10^3/uL (130-400)
[2017-09-03 05:37] LABS: BASOPHILS # (AUTO) 0.02 x10^3/uL (0-0.1); BASOPHILS % (AUTO) 0 % (0-1); EOSINOPHILS # (AUTO) 0.14 x10^3/uL (0-0.4); EOSINOPHILS % (AUTO) 2 % (1-7); LYMPHOCYTES % (AUTO) 11 % (22-44); MD SCAN; MONOCYTES # (AUTO) 1.14 x10^3/uL (0.2-0.8); MONOCYTES % (AUTO) 14 % (2-9); NEUTROPHILS # (AUTO) 5.98 x10^3/uL (1.8-6.8); NEUTROPHILS % (AUTO) 73 % (42-75)
[2017-09-03] MEDS: CARVEDILOL 6.25 MG TABLET PO SCH ×3 (06:00→18:10)
[2017-09-03] MEDS: INSULIN LISPRO 100 UNITS/ML, PEN SQ-INSULIN SCH ×4 (08:04→20:50)
[2017-09-03] MEDS: MULTIVITAMIN 1 TABLET PO SCH (08:25)
[2017-09-03] MEDS: RIVAROXABAN 15 MG TABLET PO SCH (08:25)
[2017-09-03] MEDS: FUROSEMIDE 40 MG/4 ML IV SCH ×3 (08:25→18:09)
[2017-09-03] MEDS: NIACIN 500 MG TABLET.ER PO SCH (08:25)
[2017-09-03] MEDS: ASCORBIC ACID 500 MG TABLET PO SCH (08:25)
[2017-09-03] MEDS: TAMSULOSIN 0.4 MG CAP.ER.24H PO SCH ×2 (08:25→20:42)
[2017-09-03] MEDS: GABAPENTIN 300 MG CAPSULE PO SCH ×2 (08:26→20:42)
[2017-09-03] MEDS: FLUTICASONE/VILANTEROL 100-25MCG/INH INH SCH (09:46)
[2017-09-03] MEDS: IRON SUCROSE COMPLEX 100MG/5ML IV SCH (12:18)
[2017-09-03] MEDS: ATORVASTATIN 10 MG TABLET PO SCH (20:42)
[2017-09-03] MEDS: INSULIN DEGLUDEC 56 UNIT SQ SCH (20:50)
[2017-09-03] MEDS ORDERED: SODIUM CHLORIDE 0.9% 1,000ML IVBOLUS ONE (21:30)
[2017-09-04] MEDS: ALBUTEROL/IPRATROPIUM 2.5MG/0.5MG, 3 ML NPPB SCH ×4 (03:17→20:40)
[2017-09-04 04:00] VITALS: BP 136/54
[2017-09-04 04:45] LABS: ANION GAP 5 mmol/L (5-15); CHLORIDE 106 mmol/L (98-107); CREATININE 1.74 mg/dL (0.7-1.3)
[2017-09-04] MEDS: CARVEDILOL 6.25 MG TABLET PO SCH ×2 (05:34→17:51)
[2017-09-04] MEDS: INSULIN LISPRO 100 UNITS/ML, PEN SQ-INSULIN SCH ×4 (07:00→19:49)
[2017-09-04] MEDS: FUROSEMIDE 40 MG/4 ML IV SCH ×3 (09:27→20:09)
[2017-09-04] MEDS: RIVAROXABAN 15 MG TABLET PO SCH (09:28)
[2017-09-04] MEDS: NIACIN 500 MG TABLET.ER PO SCH (09:28)
[2017-09-04] MEDS: ASCORBIC ACID 500 MG TABLET PO SCH (09:28)
[2017-09-04] MEDS: IRON SUCROSE COMPLEX 100MG/5ML IV SCH (09:28)
[2017-09-04] MEDS: GABAPENTIN 300 MG CAPSULE PO SCH ×2 (09:29→20:09)
[2017-09-04] MEDS: TAMSULOSIN 0.4 MG CAP.ER.24H PO SCH ×2 (09:29→20:09)
[2017-09-04] MEDS: FLUTICASONE/VILANTEROL 100-25MCG/INH INH SCH (09:40)
[2017-09-04] MEDS: MULTIVITAMIN 1 TABLET PO SCH (09:40)
[2017-09-04] MEDS: INSULIN DEGLUDEC 56 UNIT SQ SCH (19:48)
[2017-09-04] MEDS: ATORVASTATIN 10 MG TABLET PO SCH (20:09)
[2017-09-05] MEDS: ALBUTEROL/IPRATROPIUM 2.5MG/0.5MG, 3 ML NPPB SCH ×5 (02:50→20:00)
[2017-09-05 04:00] VITALS: BP 126/62
[2017-09-05 04:43] LABS: ANION GAP 6 mmol/L (5-15); CALCIUM 8.6 mg/dL (8.5-10.1); CHLORIDE 104 mmol/L (98-107)
[2017-09-05 04:44] LABS: CREATININE 1.85 mg/dL (0.7-1.3)
[2017-09-05] MEDS: CARVEDILOL 6.25 MG TABLET PO SCH ×2 (06:47→17:24)
[2017-09-05] MEDS: INSULIN LISPRO 100 UNITS/ML, PEN SQ-INSULIN SCH ×4 (07:00→20:37)
[2017-09-05] MEDS: FUROSEMIDE 40 MG/4 ML IV SCH ×3 (08:37→17:23)
[2017-09-05] MEDS: IRON SUCROSE COMPLEX 100MG/5ML IV SCH (08:37)
[2017-09-05] MEDS: TAMSULOSIN 0.4 MG CAP.ER.24H PO SCH ×2 (08:38→20:30)
[2017-09-05] MEDS: GABAPENTIN 300 MG CAPSULE PO SCH ×2 (08:38→20:30)
[2017-09-05] MEDS: NIACIN 500 MG TABLET.ER PO SCH (08:38)
[2017-09-05] MEDS: ASCORBIC ACID 500 MG TABLET PO SCH (08:38)
[2017-09-05] MEDS: RIVAROXABAN 15 MG TABLET PO SCH (08:38)
[2017-09-05] MEDS: MULTIVITAMIN 1 TABLET PO SCH (08:38)
[2017-09-05] MEDS ORDERED: ERGOCALCIFEROL 50,000 UNIT CAPSULE PO SCH (09:00)
[2017-09-05] MEDS: FLUTICASONE/VILANTEROL 100-25MCG/INH INH SCH (12:01)
[2017-09-05] MEDS: ATORVASTATIN 10 MG TABLET PO SCH (20:31)
[2017-09-05] MEDS: INSULIN DEGLUDEC 56 UNIT SQ SCH (20:37)
[2017-09-06 05:00] VITALS: BP 111/42
[2017-09-06] MEDS: CARVEDILOL 6.25 MG TABLET PO SCH ×2 (06:12→17:27)
[2017-09-06] MEDS: ALBUTEROL/IPRATROPIUM 2.5MG/0.5MG, 3 ML NPPB SCH ×4 (06:46→19:35)
[2017-09-06] MEDS: INSULIN LISPRO 100 UNITS/ML, PEN SQ-INSULIN SCH ×4 (07:00→21:48)
[2017-09-06] MEDS: RIVAROXABAN 15 MG TABLET PO SCH (08:22)
[2017-09-06] MEDS: FLUTICASONE/VILANTEROL 100-25MCG/INH INH SCH (08:22)
[2017-09-06] MEDS: GABAPENTIN 300 MG CAPSULE PO SCH ×2 (08:23→21:39)
[2017-09-06] MEDS: ASCORBIC ACID 500 MG TABLET PO SCH (08:23)
[2017-09-06] MEDS: TAMSULOSIN 0.4 MG CAP.ER.24H PO SCH ×2 (08:23→21:40)
[2017-09-06] MEDS: MULTIVITAMIN 1 TABLET PO SCH (08:23)
[2017-09-06] MEDS: NIACIN 500 MG TABLET.ER PO SCH (08:23)
[2017-09-06] MEDS: IRON SUCROSE COMPLEX 100MG/5ML IV SCH (08:24)
[2017-09-06] MEDS: FUROSEMIDE 40 MG/4 ML IV SCH ×3 (08:24→17:27)
[2017-09-06 13:40] VITALS: BP 125/71
[2017-09-06] MEDS ORDERED: INSULIN DEGLUDEC 56 UNIT SQ SCH (16:20)
[2017-09-06 17:26] VITALS: BP 119/69
[2017-09-06 20:45] VITALS: BP 133/64
[2017-09-06] MEDS: ATORVASTATIN 10 MG TABLET PO SCH (21:39)
[2017-09-06] MEDS: ACETAMINOPHEN 325 MG TABLET PO PRN (21:40)
[2017-09-07 01:12] VITALS: BP 113/58
[2017-09-07 04:37] LABS: ANION GAP 6 mmol/L (5-15); CALCIUM 8.5 mg/dL (8.5-10.1); CHLORIDE 104 mmol/L (98-107); CREATININE 1.81 mg/dL (0.7-1.3)
[2017-09-07 05:22] VITALS: BP 116/62
[2017-09-07 06:45] VITALS: BP 136/71
[2017-09-07] MEDS: INSULIN LISPRO 100 UNITS/ML, PEN SQ-INSULIN SCH ×3 (07:00→16:00)
[2017-09-07] MEDS: ALBUTEROL/IPRATROPIUM 2.5MG/0.5MG, 3 ML NPPB SCH ×3 (07:45→15:15)
[2017-09-07] MEDS: RIVAROXABAN 15 MG TABLET PO SCH (08:22)
[2017-09-07] MEDS: GABAPENTIN 300 MG CAPSULE PO SCH (08:22)
[2017-09-07] MEDS: TAMSULOSIN 0.4 MG CAP.ER.24H PO SCH (08:22)
[2017-09-07] MEDS: NIACIN 500 MG TABLET.ER PO SCH (08:22)
[2017-09-07] MEDS: FUROSEMIDE 40 MG/4 ML IV SCH (08:23)
[2017-09-07] MEDS: ASCORBIC ACID 500 MG TABLET PO SCH (08:23)
[2017-09-07] MEDS: IRON SUCROSE COMPLEX 100MG/5ML IV SCH (08:23)
[2017-09-07] MEDS: CARVEDILOL 6.25 MG TABLET PO SCH (08:23)
[2017-09-07] MEDS: MULTIVITAMIN 1 TABLET PO SCH (08:23)
[2017-09-07] MEDS: FLUTICASONE/VILANTEROL 100-25MCG/INH INH SCH (08:23)
[2017-09-07 12:04] VITALS: BP 115/64
[2017-09-07] MEDS ORDERED: FURO20TA3 PO (15:59)
== END 2017-09-07 17:08 | DRG 291 ==
LOC: ED 11:09 → 4WST 15:45 → CCU 19:39 → 5SO 09-01 11:07 → CCU 09-02 11:23 → 4WST 09-06 14:52
PROVIDERS: ADMIT Internal Medicine; ATTEND Hospitalist
PROC: 5A09357 Assistance with Respiratory Ventilation, Less than 24 Consecutive Hours, Continuous Positive Airway Pressure (ICD-10-PCS; principal; 2017-09-02)
PROC: 5A09357 Assistance with Respiratory Ventilation, Less than 24 Consecutive Hours, Continuous Positive Airway Pressure (ICD-10-PCS; 2017-09-03)
PROC: 5A09357 Assistance with Respiratory Ventilation, Less than 24 Consecutive Hours, Continuous Positive Airway Pressure (ICD-10-PCS; 2017-09-04)
PROC: 5A09357 Assistance with Respiratory Ventilation, Less than 24 Consecutive Hours, Continuous Positive Airway Pressure (ICD-10-PCS; 2017-09-05)
PROC: 5A09457 Assistance with Respiratory Ventilation, 24-96 Consecutive Hours, Continuous Positive Airway Pressure (ICD-10-PCS; 2017-09-05)
DX: I13.0 Hypertensive heart and chronic kidney disease with heart failure and stage 1 through stage 4 chronic kidney disease, or unspecified chronic kidney disease (principal); J96.01 Acute respiratory failure with hypoxia; J96.02 Acute respiratory failure with hypercapnia; I50.43 Acute on chronic combined systolic (congestive) and diastolic (congestive) heart failure; L03.116 Cellulitis of left lower limb; N17.9 Acute kidney failure, unspecified; D68.59 Other primary thrombophilia; Z68.41 Body mass index [BMI] 40.0-44.9, adult; E87.2 Acidosis; I69.351 Hemiplegia and hemiparesis following cerebral infarction affecting right dominant side; I82.501 Chronic embolism and thrombosis of unspecified deep veins of right lower extremity; B96.81 Helicobacter pylori [H. pylori] as the cause of diseases classified elsewhere; D50.9 Iron deficiency anemia, unspecified; D63.1 Anemia in chronic kidney disease; E11.22 Type 2 diabetes mellitus with diabetic chronic kidney disease; E55.9 Vitamin D deficiency, unspecified; E66.01 Morbid (severe) obesity due to excess calories; E78.5 Hyperlipidemia, unspecified; I25.10 Atherosclerotic heart disease of native coronary artery without angina pectoris; I48.2 Chronic atrial fibrillation; I87.8 Other specified disorders of veins; J44.9 Chronic obstructive pulmonary disease, unspecified; K76.0 Fatty (change of) liver, not elsewhere classified; N18.3 Chronic kidney disease, stage 3 (moderate); N40.0 Benign prostatic hyperplasia without lower urinary tract symptoms; Z66 Do not resuscitate; Z79.01 Long term (current) use of anticoagulants; Z79.4 Long term (current) use of insulin; Z87.01 Personal history of pneumonia (recurrent); Z87.442 Personal history of urinary calculi; Z87.891 Personal history of nicotine dependence; Z89.421 Acquired absence of other right toe(s); Z95.1 Presence of aortocoronary bypass graft; Z95.3 Presence of xenogenic heart valve; Z96.651 Presence of right artificial knee joint; K29.50 Unspecified chronic gastritis without bleeding
CPT/HCPCS: 36415; 36600; 71045; 71250; 76700; 80048; 80053; 80202; 82040; 82728; 82803; 82962; 83540; 83550; 83605; 83735; 83880; 84100; 84439; 84443; 84484; 85025; 85379; 85610; 85730; 87070; 87081; 87205; 93005; 93922; 93970; 94640; 94660; 96374; C8929; J0696; J1756; J1940; J3370; J7620; J1815; J7040